=== PATIENT | female | born 1940 | race Caucasian/White ===

== ENCOUNTER 2016-07-09 19:06 | Inpatient (IN) | payer OTHER, MEDICARE ==
[~2016-07-09] VITALS: Ht 157.5 cm; Wt 111.6 kg
[~2016-07-09 19:06] MED LIST: ADVAIR DISKUS 21 DSK INH; ALBUTEROL0.09 MG/A1 INH; APAP/CODEINE 301 TAB PO; COUMADIN 2 MG TA2 MG PO; COUMADIN 4MG TAB4 MG PO; CRESTOR40 M2; CRESTOR40 MG PO; DOCUSATE SODIU100 MG PO; DRISDOL50000 IU PO; FUROSEMIDE40 M1; FUROSEMIDE80 MG PO; K-DUR 20MEQ TA20 MEQ PO; LIDODERM 5% PAT1 PAT EXT; MIRALAX17 GM PO; MONTELUKAST SOD10 MG PO; NEXIUM40 M1; NORFLEX100 MG PO; PREDNISONE 10MG10 M1 PO; PREDNISONE10 M2 PO; PROAIR HFA0.09 MG/Ac INH; PROAIR HFA8.5 GM INH; SENOKOT8.6 MG PO; SINGULAIR10 M1; SPIRIVA1 PUF INH; TOVIAZ 4MG4 MG PO; TRAMADOL HYDROC50 MG PO; TRAZODONE50 MG PO; VENTOLIN1 PUF INH; VICODIN 300 MG-1 TAB PO; VITAMIN B121000 MCG PO; VITAMIN C1000 M1 PO; ZITHROMAX250 M2 PO; ZOLPIDEM TARTRA10 MG PO
[2016-07-09] MEDS ORDERED: ACETAZOLAMIDE250 M1 PO (19:53)
[2016-07-09] MEDS ORDERED: PANTOPRAZOLE SO40 M1 PO (19:54)
[2016-07-09] MEDS ORDERED: POTASSIUM CHLO20 ME2 PO (19:55)
[2016-07-09] MEDS ORDERED: BUSPIRONE HCL5 M1 PO (19:55)
[2016-07-09] MEDS ORDERED: GABAPENTIN100 M2 PO (19:56)
[2016-07-09] MEDS ORDERED: DOCUSATE SODIU1 EACH PO (19:57)
--- NOTE | 2016-07-09 20:29 | ED AMS/SEIZURE/WEAK/DIZZY ---
History of Present Illness General Chief Complaint: General Adult Stated Complaint: BIBA FOR LETHARGY Source: patient, family, old records, EMS Exam Limitations: clinical condition, confusion Allergies Coded Allergies: morphine (CO2 GOES UP PER PT DAUGHTER 07/09/16) Reconcile Medications Acetazolamide 250 MG TABLET 1 TAB PO Friday KIDNEY (Reported) Albuterol Sulfate (Proair Hfa) 90 MCG HFA.AER.AD 2 PUF INH Q4-6 PRN PRN wheezing Budesonide/Formoterol Fumarate (Symbicort 160-4.5 Mcg Inhaler) 160 MCG-4.5 MCG/ ACTUATION HFA.AER.AD 2 PUF INH BID copd (Reported) Buspirone HCl 5 MG TABLET 1 TAB PO BID mental health (Reported) Esomeprazole (Nexium) 40 MG CAP 1 CAP PO DAILY GI (Reported) Furosemide 40 MG TAB 1 TAB PO DAILY DIURETIC (Reported) Gabapentin 100 MG CAPSULE 1 CAP PO BID neuropathy (Reported) Montelukast Sodium (Singulair) 10 MG TAB 1 TAB PO DAILY COPD (Reported) Pantoprazole Sodium 40 MG TABLET.DR 1 TAB PO DAILY GI (Reported) Potassium Chloride 20 MEQ TAB.ER.PRT 1 TAB PO DAILY SUPPLEMENT (Reported) Rosuvastatin Calcium (Crestor) 40 MG TAB 40 MG PO DAILY CHOLESTEROL (Reported ) Sennosides/Docusate Sodium (Docusate Sodium-Senna Tablet) 8.6 MG-50 MG TABLET 2 TAB PO QHS PRN GI (Reported) Triage Note: PT BIBA FROM HOME C/O FAMILY COULD NOT WAKE PT UP. ON ARRIVAL PT IS AWAKE AND A&0X2. PER MEDIC WHO ARRIVED ON SCENE "PT WAS IN A DEEP SLEEP AND A STERNAL RUB AWOKE THE PT, PT AT HOME 2LNC 02 PT WE PUT HER ON 3L NC SAT 93%, PTS FAMILY GAVE HER LASIX BEFORE THEY CALLED 911, PT HAS HAD A COUGH FOR THE PAST WEEK ON PREDNISONE AND ALBUTEROL." PER PTS DAUGHTER " I GAVE THE ONLY MED LIST WE HAVE TO THE AMBULCANCE". PT IN VSS, 3.5LNC SAT 95%. FAMILY AT BEDSIDE, AWAITING PROVIDER EVAL Triage Nurses Notes Reviewed? yes HPI: 76-year-old female with history of COPD, on home O2 3 L, history of hypercarbic respiratory failure about a year and a half ago which required admission, presents by ambulance with altered mental status. Daughter is with her upon arrival in the history is obtained from her as the patient is very confused and unable to provide much medical history, she is alert but not oriented to person place or time. Daughter states that she got home this afternoon and patient was unarousable, when they were trying to arouse her she seems very confused, not making any sense, she was incoherent. They have noted over the last few days a mild decrease in activity level. There has been no fever. She is with an aid at home, there is been no fall or trauma. No modifying factors. Symptoms are moderate to severe. Patient states she is not in any pain (LORENZO LEIJA) Vital Signs & Intake/Output Vital Signs & Intake/Output Vital Signs Date Time Temp Pulse Resp B/P Pulse O2 O2 Flow FiO2 Ox Delivery Rate 07/13 0928 93 Nasal 1.0L Cannula 07/13 0623 98.4 60 20 114/70 96 Nasal Cannula 07/13 0000 Nasal 1.5L Cannula 07/12 2356 95 Nasal 2.0L Cannula 07/12 2256 98.0 69 20 102/60 97 Nasal Cannula 07/12 1927 Nasal 3.0L Cannula 07/12 1600 Nasal 1.0L Cannula ED Intake and Output 07/13 0000 07/12 1200 Intake Total 850 720 Output Total 2000 300 Balance -1150 420 Intake, IV 250 Intake, Oral 600 720 Output, Urine 2000 300 Past History Travel History Traveled to [place] past 21 day No Medical History Any Pertinent Medical History? see below for history Neurological: NONE EENT: cataracts Cardiovascular: hyperlipidemia Respiratory: asthma, COPD, hYPERCARBIC RESPIRATORY FAILURE Gastrointestinal: NONE Hepatic: NONE Renal: urinary incontinence, KIDNEY STONES Musculoskeletal: arthritis Psychiatric: NONE Endocrine: obesity Blood Disorders: DVT Cancer(s): endometrial cancer YACHT RIGGER/Reproductive: HYSTERECTOMY History of MRSA: No History of VRE: No History of CDIFF: No Surgical History Surgical History: non-contributory Psychosocial History Who do you live with Patient/Self Services at Home Home Health Aide, Nursing What is your primary language Ma[place] Tobacco Use: Quit >30 days ago ETOH Use: denies use Illicit Drug Use: denies illicit drug use Family History Hx Contributory? No (LORENZO LEIJA) Review of Systems Review of Systems Constitutional: Reports: see HPI. Comments Unable to determine due to patient's altered mental status (LORENZO LEIJA) Physical Exam Physical Exam General Appearance: well developed/nourished Comments: Elderly female looks stated age sitting on stretcher, confused and lethargic, nodding off during exam Able to follow some commands, minimal attention span HEENT: Normal EENT exam, extraocular motion intact, Pupils equally round and reactive to light. Nose is atraumatic. Dry mucous membranes Pharynx normal. No swelling or edema. Neck: Supple, no lymphadenopathy, Back: Nontender, no signs of trauma Cardiovascular: Regular rate and rhythms no murmurs, normal JVP Respiratory: Chest nontender. Mild increased respiratory rate and effort, decreased breath sounds noted throughout Abdomen: Soft, nontender nondistended, no appreciable organomegaly. Normal bowel sounds. No ascites Extremity: Chronic bilateral lower extremity edema and multiple bilateral foot and ankle deformities, questional Charcot joint bilateral ankle, no calf tenderness to palpation, normal and equal pulses. Neuro: Alert and confused, unable to follow most commands. Oriented 0 Skin: No appreciable rash on exposed skin, skin is warm and dry. Psych: Unable to assess Core Measures ACS in differential dx? Yes CVA/TIA Diagnosis: No Severe Sepsis Present: No Septic Shock Present: No (LORENZO LEIJA) Progress Differential Diagnosis: arrythmia, alcohol intoxication, anemia, benign positional vertigo, CVA/stroke, dehydration, drug intoxication, encephalitis, electrolyte imbalance, GI bleed, hypoglycemia, hypoxia, intracranial Hem., intracranial mass/tumor, labrynthitis, meningitis, Meniere's disease, migraine DUARTE, multiple sclerosis, pneumonia, postural hypotension, presyncope, post- traumatic vertigo, sepsis, seizure disorder, subarachnoid Hem., UTI/pyelo, vertebrobasilar insuff Diagnostic Imaging: Viewed by Me: Radiology Read. Discussed w/RAD: Radiology Read. CXR Impression: PATIENT: PAL JOHNSON PRESENT AGE: 76 PATIENT ACCOUNT NO: [id number] : 41 LOCATION: [facility] ORDERING PHYSICIAN: LORENZO ALDRIDGE SERVICE DATE: 07/09/16 EXAM TYPE: RAD - XRY-PORTABLE CHEST XRAY EXAMINATION: XR PORTABLE CHEST CLINICAL INFORMATION: Respiratory failure. COMPARISON: Chest x-ray 06/29/2016, 06/13/2015. CT chest 01/03/2014 TECHNIQUE: Portable view of the chest was obtained. FINDINGS: No acute change of the chest. Lungs are clear. No pulmonary vascular congestion. No infiltrate or pleural effusion. Cardiac and mediastinal contours are normal. IMPRESSION: No acute change of the chest. DICTATED BY: CAT LIRIANO MD DATE/TIME DICTATED:07/09 WOOD GLUER:DENISE Initial ED EKG: NSR, rate (70), no ST T wave changes Rhythm Strip: normal sinus rhythm (OLRENZO LEIJA) Plan of Care: Orders Procedure Date/time Status ARTERIAL BLOOD GAS (GEN) 07/13 0500 Complete THERAPIST ORDERS 07/13 0321 Complete THERAPIST ORDERS 07/13 0003 Complete THERAPIST ORDERS 07/13 0001 Complete Nursing Misc 07/12 UNK Active Current Medications Sig/Yamileth Start time Last Medication Dose Stop Time Status Admin Acetazolamide 250 MG MoFr 07/12 1500 AC (Diamox) Furosemide 20 MG Fri THUR 07/12 1455 CAN (Lasix) Laboratory Tests 07/13/16 0800: pH 7.37, pCO2 64 *H, pO2 92, HCO3 36 H, ABG O2 Sat (Measured) 95.0 L, Carboxyhemoglobin 0.7 L, O2 Concentration % 2L, O2 Delivery Method NC, Phlebotomy Draw Site LEFT RADIAL 07/13/16 0800: pH Pending, pCO2 Pending, pO2 Pending, HCO3 Pending, ABG O2 Sat (Measured) Pending, P-50 (Temp Corrected) Pending, Carboxyhemoglobin Pending, O2 Concentration % Pending, Temperature Pending, O2 Delivery Method Pending, Phlebotomy Draw Site Pending Comments: 07/09/2016 9:04:08 PM patient's mentation is improving with BiPAP. (RAFAEL CRUZ,MARLEN Rogers) Departure Departure Disposition: STILL A PATIENT Condition: Stable Clinical Impression Primary Impression: Acute hypercapnic respiratory failure Referrals: ELEANOR CRUZ,LISA Qunitero (PCP/Family) Departure Forms: Customer Survey General Discharge Information Admission Note Spoke With: JASPER CRUZ,GT Documentation of Exam: Documentation of any treatments & extenuating circumstances including Concerns Regarding Discharge (functional status, medication knowledge or non-compliance, living conditions, etc.) that warrant an admission rather than observation: Acute hypercarbic respiratory failure and altered mental status, requires ICU admission, on BiPAP (LORENZO LEIJA) PA/RN ANGIOGRAPHY Co-Sign Statement Statement: ED Attending supervision documentation- [x] I saw and evaluated the patient. I have also reviewed all the pertinent lab results and diagnostic results. I agree with the findings and the plan of care as documented in the PA's/RN ANGIOGRAPHY's documentation. [] I have reviewed the ED Record and agree with the PA's/RN ANGIOGRAPHY's documentation. [] Additions or exceptions (if any) to the PAs/RN ANGIOGRAPHY's note and plan are summarized below: [] (RAFAEL CRUZ,MARLEN Rogers) Critical Care Note Critical Care Note Critical Care Time: 30-74 min (30) Comments: 07/09/2016 8:28:28 PM Cough or respiratory regarding ABG, 7.1, CO2 104, we'll place on BiPAP, Dr. Friedman notified, transfer care over to him because patient is critical, she will require ICU management GIVEN SOLUMEDROL IV AND ROCEPHIN AND ZITHROMAX IV (LORENZO LEIJA) (MARLEN FRIEDMAN MD) Critical Care Note Critical Care Note Critical Care Time: 30-74 min (30) Comments: 07/09/2016 8:28:28 PM Cough or respiratory regarding ABG, 7.1, CO2 104, we'll place on BiPAP, Dr. Friedman notified, transfer care over to him because patient is critical, she will require ICU management GIVEN SOLUMEDROL IV AND ROCEPHIN AND ZITHROMAX IV (LORENZO LEIJA)
[2016-07-09 20:56] LABS: PT 11.6 SEC (9.4-12.5)
[2016-07-09 21:15] LABS: ABSOLUTE BASOPHIL COUNT 0 /CUMM (0.0-0.2); ABSOLUTE EOSINOPHIL COUNT 0 /CUMM (0.0-0.7); ABSOLUTE GRANULOCYTE CT 6.1 /CUMM (1.4-6.5); ABSOLUTE LYMPH COUNT 0.5 /CUMM (1.2-3.4); ABSOLUTE MONOCYTE COUNT 0.3 /CUMM (0.10-0.60); BASOPHIL % 0.2 % (0.0-2.0); EOSINOPHIL % 0.4 % (0-5); HEMATOCRIT 35.1 % (37-47); MEAN CORPUSCULAR HGB 20.5 PG (27.0-31.0); MEAN CORPUSCULAR HGB CONC 29.6 G/DL (33.0-37.0); MEAN CORPUSCULAR VOLUME 69.3 FL (81.0-99.0); MEAN PLATELET VOLUME 7.6 FL (7.4-10.4); PLATELET COUNT 175 /CUMM (130-400); RED BLOOD CELL CT 5.07 /CUMM (4.20-5.40); WHITE BLOOD CELL COUNT 6.9 /CUMM (4.8-10.8)
--- NOTE | 2016-07-09 21:25 | RADIOLOGY REPORT ---
EXAMINATION: XR PORTABLE CHEST CLINICAL INFORMATION: Respiratory failure. COMPARISON: Chest x-ray 06/29/2016, 06/13/2015. CT chest 01/03/2014 TECHNIQUE: Portable view of the chest was obtained. FINDINGS: No acute change of the chest. Lungs are clear. No pulmonary vascular congestion. No infiltrate or pleural effusion. Cardiac and mediastinal contours are normal. IMPRESSION: No acute change of the chest.
--- NOTE | 2016-07-09 21:31 | History & Physical ---
AKIN DONOVAN 07/09/162129: General Information and HPI MD Statement: I have seen and personally examined PAL JOHNSON and documented this H&P. The patient is a 76 year old F who presented with a patient stated chief complaint of [lethargy and altered mental status]. Source of Information: patient, old records Exam Limitations: clinical condition, confusion History of Present Illness: 76-year-old female with a past medical history of COPD on 3.0 liters of O2 at home, ex-smoker, hypertension, hyperlipidemia, arthritis, fracture of the ankle with swollen right lower extremity, baseline bilateral edema, pulmonary hypertension with sleep apnea noncompliant with BiPAP, chronic hypercarbia related to ADITYA and central sleep apnea presented to the ED with increased lethargy and confusion. History is obtained from ED records as the patient is slightly confused and there is no family by bedside/ unable to be reached over phone to take the pertinent history. Apparently daughter found the patient to be slumped in her chair this afternoon, unresponsive and sleeping, not responding to sternal rubs. When she tried to arouse her she seemed very confused and was incoherent. The family also noted a decrease in her activity level for the past few days. There is no history of fever. Patient does have a heat at home and there is no history of fall or trauma. Of note patient was seen in the ER about a week ago for COPD exacerbation and discharged on prednisone, albuterol and Z-Pack. We are unsure if the patient was taking her medications as prescribed. Patient denies any chest pain, orthopnea, PND, fever, chills but does admit to bringing up productive nonpurulent phlegm. She denies nausea, vomiting, abdominal pain, urinary tract symptoms, headache, sore throat. She states that her son had a cold and so there might be a history of sick contact. Allergies/Medications Allergies: Coded Allergies: morphine (CO2 GOES UP PER PT DAUGHTER 07/09/16) Home Med list Acetazolamide 250 MG TABLET 1 TAB PO Friday KIDNEY (Reported) Albuterol Sulfate (Proair Hfa) 90 MCG HFA.AER.AD 2 PUF INH Q4-6 PRN PRN wheezing Budesonide/Formoterol Fumarate (Symbicort 160-4.5 Mcg Inhaler) 160 MCG-4.5 MCG/ ACTUATION HFA.AER.AD 2 PUF INH BID copd (Reported) Buspirone HCl 5 MG TABLET 1 TAB PO BID mental health (Reported) Esomeprazole (Nexium) 40 MG CAP 1 CAP PO DAILY GI (Reported) Furosemide 40 MG TAB 1 TAB PO DAILY DIURETIC (Reported) Gabapentin 100 MG CAPSULE 1 CAP PO BID neuropathy (Reported) Montelukast Sodium (Singulair) 10 MG TAB 1 TAB PO DAILY COPD (Reported) Pantoprazole Sodium 40 MG TABLET.DR 1 TAB PO DAILY GI (Reported) Potassium Chloride 20 MEQ TAB.ER.PRT 1 TAB PO DAILY SUPPLEMENT (Reported) Rosuvastatin Calcium (Crestor) 40 MG TAB 40 MG PO DAILY CHOLESTEROL (Reported ) Sennosides/Docusate Sodium (Docusate Sodium-Senna Tablet) 8.6 MG-50 MG TABLET 2 TAB PO QHS PRN GI (Reported) Past History Travel History Traveled to [place] past 21 day No Medical History Neurological: NONE EENT: cataracts Cardiovascular: hyperlipidemia Respiratory: asthma, COPD, hYPERCARBIC RESPIRATORY FAILURE Gastrointestinal: NONE Hepatic: NONE Renal: urinary incontinence, KIDNEY STONES Musculoskeletal: arthritis Psychiatric: NONE Endocrine: obesity Blood Disorders: DVT Cancer(s): endometrial cancer [employer]/Reproductive: HYSTERECTOMY History of MRSA: No History of VRE: No History of CDIFF: No Surgical History Surgical History: non-contributory Past Family/Social History Psychosocial History Services at Home: Home Health Aide, Nursing ETOH Use: denies use Illicit Drug Use: denies illicit drug use Review of Systems Review of Systems Constitutional: Denies: chills, diaphoresis, fever, weakness. EENTM: Denies: visual changes. Cardiovascular: Denies: chest pain, orthopena, palpitations. Respiratory: Reports: cough, sputum production. Denies: hemoptysis, orthopnea, short of breath, wheezing. GI: Denies: abdominal pain, bloating, constipation, diarrhea, nausea, vomiting. Genitourinary: Reports: no symptoms. Musculoskeletal: Reports: no symptoms. Neurological/Psychological: Denies: headache, numbness, tingling, tremors, unable to move lower ext, unable to move upper ext. Exam & Diagnostic Data Last 24 Hrs of Vital Signs/I&O Vital Signs Date Time Temp Pulse Resp B/P Pulse O2 O2 Flow FiO2 Ox Delivery Rate 07/09 2037 76 93 07/09 1939 95 Nasal 3.5L Cannula 07/09 1933 98.6 81 18 113/56 97 Room Air Physical Exam General Appearance Alert, oriented x2, in mild respiratory distress on BiPAP HEENT Atraumatic, PERRLA, EOMI, dry mucous membranes Neck Supple, No JVD, +2 Carotid Pulse wo Bruit, No LAD Cardiovascular Regular Rate, Normal S1, Normal S2, No Murmurs Lungs B/l decreased breath sounds Abdomen Normal Bowel Sounds, Soft, No Tenderness Neurological Normal Speech Extremities RLE more swollen compared to LLE. B/l edema in LEs. Vascular Normal Pulses, Pulses Symmetrical Last 24 Hrs of Labs/Luigi: Laboratory Tests 07/09/16 2100: Urinalysis LIGHT H, Urine Color YEL, Urine Clarity HAZY H, Urine pH 6.0, Ur Specific [place] 1.025, Urine Protein 100 H, Urine Ketones NEG, Urine Nitrite NEG, Urine Bilirubin NEG, Urine Urobilinogen 0.2, Ur Leukocyte Esterase NEG, Ur Microscopic SEDIMENT EXAMINED, Urine RBC 1-3, Urine WBC 1-3 H, Ur Epithelial Cells FEW, Hyaline Casts 1-3 H, Urine Mucus FEW, Urine Hemoglobin SMALL H, Urine Glucose NEG 07/09/162038: Anion Gap 11, Estimated GFR 44 L, BUN/Creatinine Ratio 15.0, Glucose 121 H, Lactic Acid 1.0, Calcium 8.1 L, Total Bilirubin 0.8, AST 17, ALT 29, Alkaline Phosphatase 129 H, Troponin I < 0.01, Total Protein 6.6, Albumin 3.4 L, Globulin 3.2, Albumin/Globulin Ratio 1.1, PT 11.6, INR 1.11, CBC w Diff NO MAN DIFF REQ, RBC 5.07, MCV 69.3 L, MCH 20.5 L, RDW 18.0 H, MPV 7.6, Gran % 87.9 H, Lymphocytes % 7.7 L, Monocytes % 3.8, Eosinophils % 0.4, Basophils % 0.2, Absolute Granulocytes 6.1, Absolute Lymphocytes 0.5 L, Absolute Monocytes 0.3, Absolute Eosinophils 0, Absolute Basophils 0, PUBS MCHC 29.6 L 07/09/162004: pH 7.12 *L, pCO2 104 *H, pO2 75 L, HCO3 37 H, ABG O2 Sat (Measured) 91.0 L, P -50 (Temp Corrected) N, Carboxyhemoglobin 1.2 L, O2 Concentration % 2.5L, Temperature 98.6, O2 Delivery Method NC, Phlebotomy Draw Site RIGHT RADIAL Microbiology 07/09 2039 BLOOD: Blood Culture - RECD 07/09 2038 BLOOD: Blood Culture - RECD Diagnostic Data EKG Results Normal sinus rhythm with a heart rate of 74, KS interval 168, no ST-T changes and a QTC of 435 CXR Results No acute changes, no evidence of pulmonary venous congestion, infiltrate or pleural effusion Assessment/Plan Assessment: 76-year-old female with a past medical history of COPD on 3.0 liters of O2 at home, ex-smoker, hypertension, hyperlipidemia, arthritis, fracture of the ankle with swollen right lower extremity, baseline bilateral edema, pulmonary hypertension with sleep apnea noncompliant with BiPAP, chronic hypercarbia related to ADITYA and central sleep apnea presented to the ED with increased lethargy and confusion. Vitals at the time of admission blood pressure 113/56, respiratory rate 18, pulse 81, afebrile saturating 97% on 3-1/2 L of oxygen. On physical exam she is alert and oriented 2 with the BiPAP on and in mild respiratory distress. HEENT revealed PERRLA, dry mucous membranes. Cardio last exam was benign with normal S1, S2, no murmurs appreciated. Examination of the neck did not reveal any JVD or; adenopathy. Respiratory exam revealed decreased breath sounds bilaterally. Abdominal exam was benign with abdomen soft, nontender, nondistended with normal bowel sounds in all 4 quadrants. Neuro exam was limited. Examination of the extremities revealed right lower extremity slightly more swollen and warm compared to the left lower extremity. Labs pertinent for a normal white blood cell count of 6900, macrocytic anemia with an H&H of 10.4/35.1 and a platelet count of 175,000. Serum chemistries revealed a sodium of 136, potassium of 3.7, bicarbonate 37, BUN 18, elevated creatinine of 1.2, anion gap of 11. Her serum glucose was elevated to 121. Serum lactate was within normal limits at 1.0. LFTs were unremarkable with an AST/ALT of 17/29, total bili of 0.8. She did have an elevated alkaline phosphatase of 129. Her troponin first set was negative at 0.01. ABGs reveal severe respiratory acidosis with a pH of 7.12, PCO2 104 and a piece O2 of 75. UA was hazy, 1-3 white blood cell count, proteinuria and negative for nitrite and 1-3 hyaline casts and small amount of hemoglobin. Chest x-ray did not reveal any acute changes, was negative for any evidence of pulmonary venous congestion nor infiltrate or pleural effusion. Last echocardiogram was done in December 2013 which revealed left ventricular ejection fraction of 60-65% with pulmonary hypertension with an RS greater than 55. In the ED she received normal saline bolus 1, Solu-Medrol 125 mg 1, ceftriaxone and azithromycin. Assessment and plan Given her history, clinical presentation and laboratory she most likely has acute hyper carbic hypoxemic respiratory failure secondary to COPD exacerbation most likely secondary to not being compliant with BiPAP at home. Admit patient to ICU Respiratory #Acute hypoxemic, hypercarbic respiratory failure - Most likely secondary to noncompliance with BiPAP at night and COPD exacerbation - Follow-up repeat ABG and adjust BiPAP settings accordingly Start her on Solu-Medrol 40 mg IV every 8 Send for lower respiratory culture, urinary antigen for strep pneumo and Legionella Indiahoma start her on normal saline at 75 mL per hour for 1 back Continue on Symbicort and Singulair starting tomorrow Continue on Azithromyciin for its antiinflammatory properties TRC nebs BiPAP at night and nothing by mouth for now Follow-up ABG in a.m. Continue to maintain oxygen saturations greater than 90% There does not seem to be any evidence of pneumonia given the white blood cell count, fever and/or radiological evidence. For now will aguero off antibiotics. Critical care consult in a.m. with Dr. Sanders. - ID - No active signs of infection - Cardiovascular # Chronic B/L lower etxremity edema - Patient is on Lasix 40mg daily - Hold it for now given MARY KATE adn dehydration on PE. # R/o ACS - F/U trop and EKG @ 2:00am and 8:00am - Metabolic # MARY KATE - Most likely 2/2 dehydration - Hydration with IVF @ 75mls/hr - Hold Lasix and Acetazolamide - Avoid nephrotoxic agents - F/U BEP in AM #Hyponatremia Most likely secondary to dehydration Follow-up BEP in a.m. -Hematology - Microcytic anemia - 2/2 iron deficiency - F/U iron studies, stool guiac - Alimentary - Elevated blood glucose Most likely secondary to stress Follow-up hemoglobin A1c #Hyperlipidemia Continue on atorvastatin 80 mg daily - Neurology # Altered mental status Most likely secondary to hypercarbia versus hyponatremia Maintain on BiPAP for now Maintained on aspiration precautions Continue to hold medications for early malignant BiPAP For now will hold Buspirone 5 mg twice a day - Neuropathy Continue on gabapentin 100 mg twice a day - DVT prophylaxis On heparin 5000 international units 3 times a day -Diet Nothing by mouth for now given her being on BiPAP - CODE STATUS Full code as per patient. Family was unable to be reached reconfirming the CODE STATUS As Ranked By This Provider Problem List: 1. Acute hypercapnic respiratory failure 2. COPD exacerbation Core Measures/Miscellaneous Acute Coronary Syndrome ACS Diagnosis: No Cerebrovascular Accident CVA/TIA Diagnosis: No Congestive Heart Failure CHF Diagnosis: No Venous Thromboembolism VTE Risk Factors: Age > 40 VTE Prophylaxis Ordered Inpt: Pharm- Heparin No Mech VTE prophylaxis d/t: No contraindications No VTE Pharm Prophylaxis d/t: No contraindications VTE Diagnosis: No VTE Type: NONE VTE Confirmed by (Test): NONE Severe Sepsis Severe Sepsis Present: No Septic Shock Septic Shock Present: No Miscellaneous Documentation Attending Case Discussed With: Dr. Mei Primary Care Physician: LISA WEBSTER MD Patient sees these Specialists - Dr. Sanders Level of Patient Care: Critical Care (CRI) Consults Needed: Consulting Specialty: Critical Care Resident Review Statement Resident Statement: admitted by resident JASPER CRUZ, [facility] 07/09/16 0028: Attending MD Review Statement Attending Statement Attending MD Statement: examined this patient, discuss w/resident/PA/CIVIL PREPAREDNESS TRAINING OFFICER, agreed w/resident/PA/CIVIL PREPAREDNESS TRAINING OFFICER Attending Assessment/Plan: 76 yo morbidly obese F wit h/o chronic hypercarbic respiratory failure, COPD on 2-3 L O2 with significant restrictive pulmonary disease, HTN, CKD stage 3A, sleep apnea noncompliant with CPAP due to claustrophobia, DVT not on coumadin (? ), pulmonary hypertension, is brought in by family for lethargy and altered mental status. Patient on my evaluation was more awake but still confused. She reports a productive cough, but denies any other symptoms. Of note, she was admitted to [place] (May 2015) for COPD exacerbation. She was also seen in ER on Jun 29 2016 for cough/sore throat treated with prednisone and azithro for bronchitis/COPD. Vitals: afebrile, HR 80's, BP 147/95, sats 98% on Bipap FiO2 30%. Exam: Awake, oriented x2, appears comfortable, no JVD, dry mucous membranes, Chest b/l reduced air entry with scattered wheezes, Heart S1S2 regular, Abd soft, nontender, LE: chronic Rt foot swelling s/p ankle fracture with multiple corrections. 1+ LLE. Labs: microcytic anemia, INR 1.11, bicarb 37, Na 136, BUN 18, creat 1.2 ( baseline 1.0-1.1), lactic acid normal, trop neg, EKG: SR. AB.12/104/75/37 ( acute on chronic respiratory acidosis). UA clear. CXR neg. Echo (2013): EF 60-65 %, pulmonary hypertension. 1. Acute on chronic hypercarbic and hypoxemic respiratory failure. This could be due to noncompliance with CPAP for sleep apnea, ?underlying OHS and possible COPD exacerbation. No pneumonia or CHF. She also has significant pulmonary hypertension. Of note, she has been off coumadin (for h/o DVT) per daughter and her INR is 1.11. Although her pharmacy med rec shows coumadin prescribed on Jul 08, daughter states patient definitely is not on coumadin. Hence, possibility of a PE cannot be ruled out. ICU admit, TRC nebs, continue Bipap, repeat ABG tonight to ensure hypercarbia is resolving and then repeat in AM. Panculture, check urine tox screen, keep NPO except for meds, continue IV steroids tonight and then rapid taper from AM, continue azithro. Obtain LE dopplers in AM. Would consider CTA (if creatinine stabilizes) or VQ scan to rule out PE. Check Echo to assess RV function and pulmonary hypertension. Serial EKG and troponin to rule out ACS. Critical care consult with Dr. Sanders in AM. Continue singulair and symbicort. 2. Mild elevation in creatinine in this patient with CKD stage 3A, not MARY KATE. Gentle hydration, check renal functions in AM. Hold lasix and acetazolamide for now. 3. Microcytic anemia. Check iron studies, guaiac all stools. 4. GI ppx. IV PPI. DVT ppx Hep SC. Full code. Please confirm CMR in AM with PCP office (unclear if patient supposed to be on coumadin). TTS > 45 mins
[2016-07-09 21:32] LABS: GRANULOCYTE % 87.9 % (42.2-75.2)
[2016-07-09] MEDS ORDERED: SYMBICORT 16010.2 GM INH (22:25)
[2016-07-10] VITALS: BP 100/60
--- NOTE | 2016-07-10 00:28 | Admission Certification ---
Admission Certification Certification Statement - As attending physician, I certify that at the time of - admission, based on clinical presentation, severity of - symptoms, need for further diagnostic testing and - therapeutic interventions, and risk of adverse outcomes - without in-hospital treatment, in my clinical assessment, - this patient requires an acute hospital stay for a minimum - of two nights or longer. I have also considered psychsocial - factors such as support system, advanced age, financial - issues, cognitive issues, and failed out-patient treatments, - past re-admission history, safety of patient, and lack of - compliance as applicable. Specific rationale supporting this admission is: Acute on chronic hypercarbic and hypoxemic respiratory failure 2/2 sleep apnea ? OHS, and possible COPD exacerbation.
[2016-07-10 05:57] LABS: PT 11.8 SEC (9.4-12.5)
[2016-07-10 06:03] LABS: ABSOLUTE BASOPHIL COUNT 0 /CUMM (0.0-0.2); ABSOLUTE EOSINOPHIL COUNT 0 /CUMM (0.0-0.7); ABSOLUTE GRANULOCYTE CT 8.1 /CUMM (1.4-6.5); ABSOLUTE LYMPH COUNT 0.6 /CUMM (1.2-3.4); ABSOLUTE MONOCYTE COUNT 0 /CUMM (0.10-0.60); BASOPHIL % 0 % (0.0-2.0); EOSINOPHIL % 0 % (0-5); GRANULOCYTE % 92.5 % (42.2-75.2); HEMATOCRIT 31.9 % (37-47); MEAN CORPUSCULAR HGB 20.3 PG (27.0-31.0); MEAN CORPUSCULAR HGB CONC 29.3 G/DL (33.0-37.0); MEAN CORPUSCULAR VOLUME 69.4 FL (81.0-99.0); MEAN PLATELET VOLUME 7.6 FL (7.4-10.4); PLATELET COUNT 164 /CUMM (130-400); RBC DISTRIBUTION WIDTH 18.2 % (11.5-14.5); WHITE BLOOD CELL COUNT 8.8 /CUMM (4.8-10.8)
[2016-07-10 08:00] VITALS: BP 102/60
--- NOTE | 2016-07-10 10:56 | ULTRASOUND REPORT ---
EXAMINATION: BILATERAL LOWER EXTREMITY DEEP VENOUS ULTRASOUND CLINICAL INFORMATION: Hypoxemic respiratory failure. Hypercarbic. COMPARISON: Right lower extremity DVT study 06/13/2015 TECHNIQUE: Duplex Doppler imaging with compression maneuvers were performed of the bilateral lower extremity deep venous systems. FINDINGS: The bilateral visualized common femoral, femoral and popliteal veins demonstrate normal compressibility and color flow without evidence of venous thrombosis. Visualized portions of the bilateral calf veins demonstrate normal color fill-in suggesting patency. Small left Joseph's cyst measuring approximately 2.8 x 0.7 x 1.8 cm. IMPRESSION: 1. No evidence of deep venous thrombosis involving the bilateral lower extremities. 2. Small left-sided Joseph's cyst.
--- NOTE | 2016-07-10 11:10 | Cons- Cardiology ---
General Information and HPI Consulting Request Date of Consult: 07/10/16 Requested By: Dr. Sanders Reason for Consult: Dyspnea Source of Information: patient, family, old records History of Present Illness: This is a 76-year-old female with a past medical history of sleep apnea noncompliant with home CPAP, COPD, obesity, chronic lower extremity edema, arthritis, and pulmonary hypertension who presented to [facility] with a chief complaint of increased lethargy. The patient's daughter found the patient to be slumped over in her chair and minimally arousable. She apparently had a recent admission for similar complaints at [facility] in March. She apparently did have a nonproductive the cough without subjective fevers. No recent complaints of chest pain, palpitations, diarrhea, headache, slurring of speech, focal weakness, or increasing edema. She does have chronic lower extremity edema. On presentation the patient was found to have significant respiratory acidosis on ABG. On my interview with her today she was comfortable on BiPAP therapy. Allergies/Medications Allergies: Coded Allergies: morphine (CO2 GOES UP PER PT DAUGHTER 07/09/16) Home Med List: Acetazolamide 250 MG TABLET 1 TAB PO Friday KIDNEY (Reported) Albuterol Sulfate (Proair Hfa) 90 MCG HFA.AER.AD 2 PUF INH Q4-6 PRN PRN wheezing Budesonide/Formoterol Fumarate (Symbicort 160-4.5 Mcg Inhaler) 160 MCG-4.5 MCG/ ACTUATION HFA.AER.AD 2 PUF INH BID copd (Reported) Buspirone HCl 5 MG TABLET 1 TAB PO BID mental health (Reported) Esomeprazole (Nexium) 40 MG CAP 1 CAP PO DAILY GI (Reported) Furosemide 40 MG TAB 1 TAB PO DAILY DIURETIC (Reported) Gabapentin 100 MG CAPSULE 1 CAP PO BID neuropathy (Reported) Montelukast Sodium (Singulair) 10 MG TAB 1 TAB PO DAILY COPD (Reported) Pantoprazole Sodium 40 MG TABLET.DR 1 TAB PO DAILY GI (Reported) Potassium Chloride 20 MEQ TAB.ER.PRT 1 TAB PO DAILY SUPPLEMENT (Reported) Rosuvastatin Calcium (Crestor) 40 MG TAB 40 MG PO DAILY CHOLESTEROL (Reported ) Sennosides/Docusate Sodium (Docusate Sodium-Senna Tablet) 8.6 MG-50 MG TABLET 2 TAB PO QHS PRN GI (Reported) Current Medications: Current Medications Sig/Yamileth Start time Last Medication Dose Route Stop Time Status Admin Acetaminophen 650 MG Q6PRN PRN 07/09 2245 AC PO Atorvastatin Calcium 80 MG 1700 07/10 1700 AC PO Azithromycin 500 MG DAILY 07/10 1000 AC Dextrose/Water 250 ML IV Azithromycin 500 MG ONCE ONE 07/09 2145 DC 07/09 Dextrose/Water 250 ML IV 07/09 2244 2206 Budesonide/ 2 PUF BID 07/10 1000 AC Formoterol Fumarate INH Ceftriaxone Sodium 0 .STK-MED ONE 07/09 215 DC .ROUTE Ceftriaxone Sodium 1,000 MG ONCE ONE 07/09 2144 DC 07/09 IV 07/09 2145 220 Gabapentin 100 MG BID 07/10 1000 AC PO Heparin Sodium 5,000 UNIT Q8 07/10 0600 AC 07/10 (Porcine) SC 0541 Heparin Sodium 0 .STK-MED ONE 07/09 2210 DC (Porcine) .ROUTE Heparin Sodium 5,000 UNIT Q8 07/09 2200 DC 07/09 (Porcine) SC 2214 Methylprednisolone 40 MG Q8 07/10 0600 AC 07/10 IV 0541 Methylprednisolone 0 .STK-MED ONE 07/09 2045 DC .ROUTE Methylprednisolone 125 MG ONCE ONE 07/09 2044 DC 07/09 IV 07/09 Montelukast Sodium 10 MG 1700 07/10 1700 AC PO Pantoprazole Sodium 40 MG DAILY 07/10 1000 AC IV Senna/Docusate Sodium 2 TAB AT BEDTIME 07/10 2200 AC PO Sodium Chloride 1,000 ML Q13H 07/09 2230 AC 07/09 IV 07/10 1129 2241 Sodium Chloride 1,000 ML BOLUS ONE 07/09 1999 DC 07/09 IV 07/09 Warfarin Sodium 5 MG ONCE ONE 07/10 0045 CAN PO 07/10 004 Review of Systems Review of Systems: Review of systems as per HPI. The remainder of a 10 point review of systems was reviewed and was otherwise negative. 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 Home Services at Home: Home Health Aide, Nursing Smoking Status: Former Smoker ETOH Use: denies use Illicit Drug Use: denies illicit drug use Exam & Diagnostic Data Vital Signs and I&O Vital Signs Date Time Temp Pulse Resp B/P Pulse O2 O2 Flow FiO2 Ox Delivery Rate 07/10 0904 78 94 07/10 08 92 Nasal 3.0L Cannula 07/10 799 98.0 76 14 102/60 92 Nasal 3.0L Cannula 07/10 0459 92 Nasal 5.0L Cannula 07/10 0450 88 95 07/10 0400 96 BIPAP 40% 07/10 0322 67 94 07/10 0033 65 91 07/10 0030 66 84 07/10 0000 98 BIPAP 30% 07/10 0000 98.7 72 33 100/60 98 BIPAP 30% 07/09 2357 77 93 07/09 2257 98.4 75 18 147/95 86 BIPAP 30% 07/09 2210 92 07/09 2038 76 93 07/09 1940 95 Nasal 3.5L Cannula 07/09 1934 98.6 81 18 113/56 97 Room Air Intake & Output 07/10 1600 07/10 0800 07/10 0000 07/09 1600 07/09 0800 07/09 0000 Intake Total 372 Output Total 400 160 Balance -28 -160 Intake, IV 372 Intake, Oral 0 Number 0 Bowel Movements Output, Urine 400 160 Patient 246 lb Weight Physical Exam: General: no apparent distress. Obese. On BiPAP. Eyes: No obvious scleral icterus. HEENT: No jugular venous distention or abnormal jugular venous pulsations. Cardiovascular: Normal intensity S1/S2. Regular. Respiratory: Lungs clear to auscultation bilaterally. Abdomen: no guarding or rebound tenderness. Musculoskeletal: Trace lower extremity edema bilaterally Skin: Warm Neurologic: No gross focal deficits noted. Labs/Luigi Results: Laboratory Tests 07/10 07/10 07/10 07/10 0840 0825 0800 0500 Blood Gas pH (7.35 - 7.45 PH) 7.25 *L pCO2 (35 - 45 TORR) 82 *H pO2 (80 - 100 TORR) 71 L HCO3 (21 - 28 MEQ/L) 35 H ABG O2 Sat (Measured) (>96.0 %) 92.0 L Carboxyhemoglobin (1.5 - 5.0 %) 2.0 O2 Concentration % 2LPM Temperature (97.0 - 100.0 FARH) 98.0 O2 Delivery Method NC Chemistry Sodium Cancelled Potassium Cancelled Chloride Cancelled Carbon Dioxide Cancelled Anion Gap Cancelled BUN Cancelled Creatinine Cancelled Glucose Cancelled Calcium Cancelled Phosphorus Cancelled Magnesium Cancelled Total Bilirubin Cancelled AST Cancelled ALT Cancelled Troponin I (< 0.11 ng/ml) < 0.01 Cancelled Albumin Cancelled Coagulation D-Dimer (70 - 232 ng/ml) 1003 H Hematology CBC w Diff Cancelled WBC Cancelled RBC Cancelled Hgb Cancelled Hct Cancelled MCV Cancelled MCH Cancelled RDW Cancelled Plt Count Cancelled MPV Cancelled PUBS MCHC Cancelled Miscellaneous Phlebotomy Draw Site LEFT RADIAL 07/10 07/10 0424 0200 Chemistry Sodium (137 - 145 mmol/L) 137 Potassium (3.5 - 5.1 mmol/L) 4.4 Chloride (98 - 107 mmol/L) 93 L Carbon Dioxide (22 - 30 mmol/L) 33 H Anion Gap (5 - 16) 12 BUN (7 - 17 mg/dL) 18 H Creatinine (0.5 - 1.0 mg/dL) 1.1 H Estimated GFR (>60 ml/min) 48 L Glucose (65 - 99 mg/dL) 146 H Calcium (8.4 - 10.2 mg/dL) 7.6 L Phosphorus (2.5 - 4.5 mg/dL) 3.9 Magnesium (1.6 - 2.3 mg/dL) 1.8 Total Bilirubin (0.2 - 1.3 mg/dL) 0.5 AST (14 - 36 U/L) 17 ALT (9 - 52 U/L) 28 Troponin I (< 0.11 ng/ml) < 0.01 Cancelled Albumin (3.5 - 5.0 g/dL) 3.0 L Coagulation PT (9.4 - 12.5 SEC) 11.8 INR (0.90 - 1.19) 1.13 Hematology CBC w Diff MAN DIFF ORDERED WBC (4.8 - 10.8 /CUMM) 8.8 RBC (4.20 - 5.40 /CUMM) 4.60 Hgb (12.0 - 16.0 G/DL) 9.3 L Hct (37 - 47 %) 31.9 L MCV (81.0 - 99.0 FL) 69.4 L MCH (27.0 - 31.0 PG) 20.3 L RDW (11.5 - 14.5 %) 18.2 H Plt Count (130 - 400 /CUMM) 164 MPV (7.4 - 10.4 FL) 7.6 Gran % (42.2 - 75.2 %) 92.5 H Lymphocytes % (20.5 - 51.1 %) 7.1 L Monocytes % (1.7 - 9.3 %) 0.4 L Eosinophils % (0 - 5 %) 0 Basophils % (0.0 - 2.0 %) 0 L Absolute Granulocytes (1.4 - 6.5 /CUMM) 8.1 H Segmented Neutrophils (42.2 - 75.2 %) 85 H Band Neutrophils (0.0 - 5.0 %) 1 Absolute Lymphocytes (1.2 - 3.4 /CUMM) 0.6 L Lymphocytes (20.5 - 51.1 %) 12 L Monocytes (1.7 - 9.3 %) 2 Absolute Monocytes (0.10 - 0.60 /CUMM) 0 L Absolute Eosinophils (0.0 - 0.7 /CUMM) 0 Absolute Basophils (0.0 - 0.2 /CUMM) 0 Nucleated RBCs (0.0 - 0.0 /100WBC) 4 H Platelet Estimate (ADEQUATE) ADEQUATE Polychromasia 1+ Hypochromic-Microcytic 2+ Poikilocytosis 2+ Basophilic Stippling 1+ Anisocytosis 2+ Microcytic Cells 2+ Ovalocytes 1+ Stomatocytes 1+ Elliptocytes FEW PUBS MCHC (33.0 - 37.0 G/DL) 29.3 L Other Body Source Fld Total RBCs Counted (%) 100 07/09 07/09 3708 3231 Blood Gas pH (7.35 - 7.45 PH) 7.26 *L pCO2 (35 - 45 TORR) 74 *H pO2 (80 - 100 TORR) 72 L HCO3 (21 - 28 MEQ/L) 32 H ABG O2 Sat (Measured) (>96.0 %) 92.0 L P-50 (Temp Corrected) N Carboxyhemoglobin (1.5 - 5.0 %) 1.3 L O2 Concentration % 30% Temperature (97.0 - 100.0 FARH) 98.6 Respiration Rate (BPM) 28 O2 Delivery Method BIPAP Vent Mode ST Expiratory Pressure (CM H2O P) 6 Inspiratory Pressure (CM H2O P) 18 Chemistry Lactic Acid Cancelled Miscellaneous Phlebotomy Draw Site RIGHT RADIAL 07/09 Chemistry Sodium (137 - 145 mmol/L) 136 L Potassium (3.5 - 5.1 mmol/L) 3.7 Chloride (98 - 107 mmol/L) 87 L Carbon Dioxide (22 - 30 mmol/L) 37 H Anion Gap (5 - 16) 11 BUN (7 - 17 mg/dL) 18 H Creatinine (0.5 - 1.0 mg/dL) 1.2 H Estimated GFR (>60 ml/min) 44 L BUN/Creatinine Ratio (7 - 25 %) 15.0 Glucose (65 - 99 mg/dL) 121 H Lactic Acid (0.7 - 2.1 mmol/L) 1.0 Calcium (8.4 - 10.2 mg/dL) 8.1 L Phosphorus (2.5 - 4.5 mg/dL) 4.4 Magnesium (1.6 - 2.3 mg/dL) 1.8 Iron (37 - 170 ug/dL) 24 L TIBC (265 - 497 ug/dL) 482 Ferritin (11.1 - 264 ng/mL) 13.2 Total Bilirubin (0.2 - 1.3 mg/dL) 0.8 AST (14 - 36 U/L) 17 ALT (9 - 52 U/L) 29 Alkaline Phosphatase (<127 U/L) 129 H Troponin I (< 0.11 ng/ml) < 0.01 Total Protein (6.3 - 8.2 g/dL) 6.6 Albumin (3.5 - 5.0 g/dL) 3.4 L Globulin (1.9 - 4.2 gm/dL) 3.2 Albumin/Globulin Ratio (1.1 - 2.2 %) 1.1 Coagulation PT (9.4 - 12.5 SEC) 11.6 INR (0.90 - 1.19) 1.11 Hematology CBC w Diff NO MAN DIFF REQ WBC (4.8 - 10.8 /CUMM) 6.9 RBC (4.20 - 5.40 /CUMM) 5.07 Hgb (12.0 - 16.0 G/DL) 10.4 L Hct (37 - 47 %) 35.1 L MCV (81.0 - 99.0 FL) 69.3 L MCH (27.0 - 31.0 PG) 20.5 L RDW (11.5 - 14.5 %) 18.0 H Plt Count (130 - 400 /CUMM) 175 MPV (7.4 - 10.4 FL) 7.6 Gran % (42.2 - 75.2 %) 87.9 H Lymphocytes % (20.5 - 51.1 %) 7.7 L Monocytes % (1.7 - 9.3 %) 3.8 Eosinophils % (0 - 5 %) 0.4 Basophils % (0.0 - 2.0 %) 0.2 Absolute Granulocytes (1.4 - 6.5 /CUMM) 6.1 Absolute Lymphocytes (1.2 - 3.4 /CUMM) 0.5 L Absolute Monocytes (0.10 - 0.60 /CUMM) 0.3 Absolute Eosinophils (0.0 - 0.7 /CUMM) 0 Absolute Basophils (0.0 - 0.2 /CUMM) 0 PUBS MCHC (33.0 - 37.0 G/DL) 29.6 L Toxicology Urine Opiates Screen (>2000 NG/ML) > 4000.00 H Methadone Screen (>300 NG/ML) < 40 Barbiturate Screen (>200 NG/ML) < 60 Ur Phencyclidine Scrn (>25 NG/ML) < 6.00 Amphetamines Screen (>1000 NG/ML) < 100 U Benzodiazepines Scrn (>200 NG/ML) < 85 Urine Cocaine Screen (>300 NG/ML) < 50 Urine Cannabis Screen (>50 NG/ML) < 5.00 Urines Urinalysis LIGHT H Urine Color (YEL,AMB,STR) YEL Urine Clarity (CLEAR) HAZY H Urine pH (5.0 - 8.0) 6.0 Ur Specific Sayre (1.001 - 1.035) 1.025 Urine Protein (NEG,<30 MG/DL) 100 H Urine Ketones (NEG) NEG Urine Nitrite (NEG) NEG Urine Bilirubin (NEG) NEG Urine Urobilinogen (0.1 - 1.0 EU/dl) 0.2 Ur Leukocyte Esterase (NEG) NEG Ur Microscopic SEDIMENT EXAMINED Urine RBC (0 - 5 /HPF) 1-3 Urine WBC (0 - 2 /HPF) 1-3 H Ur Epithelial Cells (NONE,FEW) FEW Hyaline Casts (0/LPF) 1-3 H Urine Mucus (FEW,NONE) FEW Urine Hemoglobin (NEG) SMALL H Urine Glucose (N MG/DL) NEG 07/09 Blood Gas pH (7.35 - 7.45 PH) 7.12 *L pCO2 (35 - 45 TORR) 104 *H pO2 (80 - 100 TORR) 75 L HCO3 (21 - 28 MEQ/L) 37 H ABG O2 Sat (Measured) (>96.0 %) 91.0 L P-50 (Temp Corrected) N Carboxyhemoglobin (1.5 - 5.0 %) 1.2 L O2 Concentration % 2.5L Temperature (97.0 - 100.0 FARH) 98.6 O2 Delivery Method NC Chemistry Hemoglobin A1c Pending Miscellaneous Phlebotomy Draw Site RIGHT RADIAL Diagnostic Data EKG Results Tracing personally reviewed show sinus rhythm with low voltage and right axis deviation CXR Results No acute change of the chest. Other Results Telemetry tracings were personally reviewed and shows sinus rhythm Venous Doppler IMPRESSION: 1. No evidence of deep venous thrombosis involving the bilateral lower extremities. 2. Small left-sided Joseph's cyst. Assessment/Plan Assessment/Plan 1. Altered mental status due to hypercapnic respiratory failure 2. Obstructive sleep apnea noncompliant with home CPAP therapy 3. History of mild COPD 4. Pulmonary hypertension 5. Chronic lower extremity edema 6. Obesity 7. Hyperlipidemia Patient appears to be improving with the BiPAP therapy. Mental status has improved. No evidence of acute coronary syndrome. No evidence of pulmonary edema , can resume her outpatient diuretic therapy for chronic lower extremity edema. Would recommend repeat echocardiogram as her last echocardiogram was reportedly in 2013. Peyman Andrews MD [facility] Consult Acknowledgment - Thank you for your consult request.
--- NOTE | 2016-07-10 13:01 | Cons- CRCU ---
General Information and HPI Consulting Request Date of Consult: 07/10/16 Requested By: MEd team History of Present Illness: his is a 76-year-old female with a past medical history of sleep apnea noncompliant with home CPAP, COPD, obesity, chronic lower extremity edema, arthritis, and pulmonary hypertension who presented to [facility] with a chief complaint of increased lethargy. The patient's daughter found the patient to be slumped over in her chair and minimally arousable. She apparently had a recent admission for similar complaints at [facility] in March. She apparently did have a nonproductive the cough without subjective fevers. No recent complaints of chest pain, palpitations, diarrhea, headache, slurring of speech, focal weakness, or increasing edema. She does have chronic lower extremity edema. On presentation the patient was found to have significant respiratory acidosis on ABG. WHen I saw her pt was on bipap and was answering all questions Has had significant on and off multiple respiratory failure episodes requiring multiple admissions to [facility] in the past 2 years. Patient has had a previous sleep study and she also has severe obesity hypoventilation syndrome and she was supposed to have been given BiPAP before and she was not using that at home. As she is claustrophobic she has refused to use it. We'll do in the last admission to [facility] dad discharge her to short -term rehabilitation and patient was not using BiPAP. Previously she has had the multiple admissions with UTI as well. No burning during urination. Review of Systems Constitutional: Denies: chills, diaphoresis, fever, weakness. EENTM: Denies: visual changes. Cardiovascular: Denies: chest pain, orthopena, palpitations. Respiratory: Reports: cough, sputum production. Denies: hemoptysis, orthopnea, short of breath, wheezing. GI: Denies: abdominal pain, bloating, constipation, diarrhea, nausea, vomiting. Genitourinary: Reports: no symptoms. Musculoskeletal: Reports: no symptoms. Neurological/Psychological: Denies: headache, numbness, tingling, tremors, unable to move lower ext, unable to move upper ext. Allergies/Medications Allergies: Coded Allergies: morphine (CO2 GOES UP PER PT DAUGHTER 07/09/16) Home Med List: Acetazolamide 250 MG TABLET 1 TAB PO Friday KIDNEY (Reported) Albuterol Sulfate (Proair Hfa) 90 MCG HFA.AER.AD 2 PUF INH Q4-6 PRN PRN wheezing Budesonide/Formoterol Fumarate (Symbicort 160-4.5 Mcg Inhaler) 160 MCG-4.5 MCG/ ACTUATION HFA.AER.AD 2 PUF INH BID copd (Reported) Buspirone HCl 5 MG TABLET 1 TAB PO BID mental health (Reported) Esomeprazole (Nexium) 40 MG CAP 1 CAP PO DAILY GI (Reported) Furosemide 40 MG TAB 1 TAB PO DAILY DIURETIC (Reported) Gabapentin 100 MG CAPSULE 1 CAP PO BID neuropathy (Reported) Montelukast Sodium (Singulair) 10 MG TAB 1 TAB PO DAILY COPD (Reported) Pantoprazole Sodium 40 MG TABLET.DR 1 TAB PO DAILY GI (Reported) Potassium Chloride 20 MEQ TAB.ER.PRT 1 TAB PO DAILY SUPPLEMENT (Reported) Rosuvastatin Calcium (Crestor) 40 MG TAB 40 MG PO DAILY CHOLESTEROL (Reported ) Sennosides/Docusate Sodium (Docusate Sodium-Senna Tablet) 8.6 MG-50 MG TABLET 2 TAB PO QHS PRN GI (Reported) Review of Systems Review of Systems Constitutional: Reports: see HPI. Past History Travel History Traveled to [place] past 21 day No Medical History Blood Transfusion Hx: No Neurological: NONE EENT: cataracts Cardiovascular: hyperlipidemia Respiratory: asthma, COPD, hYPERCARBIC RESPIRATORY FAILURE Gastrointestinal: NONE Hepatic: NONE Renal: urinary incontinence, KIDNEY STONES Musculoskeletal: arthritis Psychiatric: NONE Endocrine: obesity Blood Disorders: DVT Cancer(s): endometrial cancer RN CLINICAL APPEALS/Reproductive: HYSTERECTOMY Surgical History Surgical History: HYSTERECTOMY RIGHT FOOT CHOLEYSYSTECTOMY APPENDECTOMY Psychosocial History Where Do You Live? Home Services at Home: Home Health Aide, Nursing Smoking Status: Former Smoker ETOH Use: denies use Illicit Drug Use: denies illicit drug use Exam & Diagnostic Data Last 24 Hrs of Vital Signs/I&O Vital Signs Date Time Temp Pulse Resp B/P Pulse O2 O2 Flow FiO2 Ox Delivery Rate 07/10 1205 94 Nasal 3.0L Cannula 07/10 1147 78 97 07/10 0904 78 94 07/10 0800 92 Nasal 3.0L Cannula 07/10 08 98.0 76 14 102/60 92 Nasal 3.0L Cannula 07/10 0459 92 Nasal 5.0L Cannula 07/10 045 88 95 07/10 0400 96 BIPAP 40% 07/10 0322 67 94 07/10 0033 65 91 07/10 0030 66 84 07/10 0000 98 BIPAP 30% 07/10 0000 98.7 72 33 100/60 98 BIPAP 30% 07/09 2357 77 93 07/09 2257 98.4 75 18 147/95 86 BIPAP 30% 07/09 2210 92 07/09 2038 76 93 07/09 1940 95 Nasal 3.5L Cannula 07/09 1934 98.6 81 18 113/56 97 Room Air Intake & Output 07/10 1600 07/10 0800 07/10 0000 Intake Total 372 Output Total 400 160 Balance -28 -160 Intake, IV 372 Intake, Oral 0 Number 0 Bowel Movements Output, Urine 400 160 Patient 246 lb 246 lb Weight Last 48 Hrs of Labs/Luigi: Laboratory Tests 07/10/16 0840: Troponin I < 0.01, D-Dimer 1003 H 07/10/16 0825: pH 7.25 *L, pCO2 82 *H, pO2 71 L, HCO3 35 H, ABG O2 Sat (Measured) 92.0 L, Carboxyhemoglobin 2.0, O2 Concentration % 2LPM, Temperature 98.0, O2 Delivery Method NC, Phlebotomy Draw Site LEFT RADIAL 07/10/16 0800: Troponin I Cancelled 07/10/16 0500: Sodium Cancelled, Potassium Cancelled, Chloride Cancelled, Carbon Dioxide Cancelled, Anion Gap Cancelled, BUN Cancelled, Creatinine Cancelled, Glucose Cancelled, Calcium Cancelled, Phosphorus Cancelled, Magnesium Cancelled, Total Bilirubin Cancelled, AST Cancelled, ALT Cancelled, Albumin Cancelled, CBC w Diff Cancelled, WBC Cancelled, RBC Cancelled, Hgb Cancelled, Hct Cancelled, MCV Cancelled, MCH Cancelled, RDW Cancelled, Plt Count Cancelled, MPV Cancelled, PUBS MCHC Cancelled 07/10/16 0424: Anion Gap 12, Estimated GFR 48 L, Glucose 146 H, Calcium 7.6 L, Phosphorus 3.9, Magnesium 1.8, Total Bilirubin 0.5, AST 17, ALT 28, Troponin I < 0.01, Albumin 3.0 L, PT 11.8, INR 1.13, CBC w Diff MAN DIFF ORDERED, RBC 4.60, MCV 69.4 L, MCH 20.3 L, RDW 18.2 H, MPV 7.6, Gran % 92.5 H, Lymphocytes % 7.1 L , Monocytes % 0.4 L, Eosinophils % 0, Basophils % 0 L, Absolute Granulocytes 8.1 H, Segmented Neutrophils 85 H, Band Neutrophils 1, Absolute Lymphocytes 0.6 L, Lymphocytes 12 L, Monocytes 2, Absolute Monocytes 0 L, Absolute Eosinophils 0, Absolute Basophils 0, Nucleated RBCs 4 H, Platelet Estimate ADEQUATE, Polychromasia 1+, Hypochromic-Microcytic 2+, Poikilocytosis 2+, Basophilic Stippling 1+, Anisocytosis 2+, Microcytic Cells 2+, Ovalocytes 1+, Stomatocytes 1+, Elliptocytes FEW, PUBS MCHC 29.3 L, Fld Total RBCs Counted 100 07/10/16 0200: Troponin I Cancelled 07/09/16 2251: Lactic Acid Cancelled 07/09/16 2215: pH 7.26 *L, pCO2 74 *H, pO2 72 L, HCO3 32 H, ABG O2 Sat (Measured) 92.0 L, P- 50 (Temp Corrected) N, Carboxyhemoglobin 1.3 L, O2 Concentration % 30%, Temperature 98.6, Respiration Rate 28, O2 Delivery Method BIPAP, Vent Mode ST, Expiratory Pressure 6, Inspiratory Pressure 18, Phlebotomy Draw Site RIGHT RADIAL 07/09/16 2100: Urine Opiates Screen > 4000.00 H, Methadone Screen < 40, Barbiturate Screen < 60, Ur Phencyclidine Scrn < 6.00, Amphetamines Screen < 100, U Benzodiazepines Scrn < 85, Urine Cocaine Screen < 50, Urine Cannabis Screen < 5.00, Urinalysis LIGHT H, Urine Color YEL, Urine Clarity HAZY H, Urine pH 6.0, Ur Specific [place] 1.025, Urine Protein 100 H, Urine Ketones NEG, Urine Nitrite NEG, Urine Bilirubin NEG, Urine Urobilinogen 0.2, Ur Leukocyte Esterase NEG, Ur Microscopic SEDIMENT EXAMINED, Urine RBC 1-3, Urine WBC 1-3 H, Ur Epithelial Cells FEW, Hyaline Casts 1-3 H, Urine Mucus FEW, Urine Hemoglobin SMALL H, Urine Glucose NEG 07/09/162038: Anion Gap 11, Estimated GFR 44 L, BUN/Creatinine Ratio 15.0, Glucose 121 H, Lactic Acid 1.0, Calcium 8.1 L, Phosphorus 4.4, Magnesium 1.8, Iron 24 L, TIBC 482, Ferritin 13.2, Total Bilirubin 0.8, AST 17, ALT 29, Alkaline Phosphatase 129 H, Troponin I < 0.01, Total Protein 6.6, Albumin 3.4 L, Globulin 3.2, Albumin/Globulin Ratio 1.1, PT 11.6, INR 1.11, CBC w Diff NO MAN DIFF REQ, RBC 5.07, MCV 69.3 L, MCH 20.5 L, RDW 18.0 H, MPV 7.6, Gran % 87.9 H, Lymphocytes % 7.7 L, Monocytes % 3.8, Eosinophils % 0.4, Basophils % 0.2, Absolute Granulocytes 6.1, Absolute Lymphocytes 0.5 L, Absolute Monocytes 0.3, Absolute Eosinophils 0, Absolute Basophils 0, PUBS MCHC 29.6 L 07/09/162004: pH 7.12 *L, pCO2 104 *H, pO2 75 L, HCO3 37 H, ABG O2 Sat (Measured) 91.0 L, P -50 (Temp Corrected) N, Carboxyhemoglobin 1.2 L, O2 Concentration % 2.5L, Temperature 98.6, O2 Delivery Method NC, Phlebotomy Draw Site RIGHT RADIAL 07/09/161950: Hemoglobin A1c Pending Microbiology 07/09 2099 URINE ROUT: Legionella Antigen - COMP 07/09 2099 URINE ROUT: Streptococcus pneumoniae Antigen (M - COMP SIGNIFICANT DATA Lower extremity ultrasound, unremarkable small Joseph's cyst no DVT chest x-ray unremarkable previous VQ scan in 2014 very low probability Remote CT scan of the chest had shown no significant emphysema and patient has moderate hiatal hernia no PE in 2013. Assessment/Plan Impression/Plan: Physical Exam General Appearance Alert, oriented x2, in mild respiratory distress on BiPAP HEENT Atraumatic, PERRLA, EOMI, dry mucous membranes Neck Supple, No JVD, +2 Carotid Pulse wo Bruit, No LAD Cardiovascular Regular Rate, Normal S1, Normal S2, No Murmurs Lungs B/l decreased breath sounds Abdomen Normal Bowel Sounds, Soft, No Tenderness Neurological Normal Speech Extremities RLE more swollen compared to LLE. B/l edema in LEs. Vascular Normal Pulses, Pulses Symmetrical IMPRESSION This is a morbidly obese lady with history of chronic lung disease who has probably mild COPD with significant restrictive pulmonary disease due to morbid obesity with no emphysema noted in the CAT scan has a following issues * Main issues and acute on chronic hypercarbic insufficiency and failure probably related to untreated sleep apnea probably obstructive versus central sleep apnea and pt has refused senior living cpap or bipap no evidence suggestive of any severe COPD exacerbation, may have had mild bronchitis with mild ACOPDE * Significant pulmonary hypertension with PA pressures more than 55 most likely related to her untreated obstructive sleep apnea versus central apnea. PT has had remote history of dvt and was on warfarin for more than a yr and no recent dvt and previous pe work up neg so far and pt was prob not on warfarin lately * Morbid obesity playing a role * Significant restrictive lung disease as well due to her body habitus * Chronic lower ext edema * CKD with MARY KATE better, due to HTN etc * Elevated sugar with glucose intol * Chronic microcytic anemia needs gi work up and pt not too keen now * Chronic hyponatremia * Hyperlipedemia * Sig anxiety and peripheral neuropathy on buspar and gabapentin * Chronic tremor in the rt hand with previous neuro eval * Previous history of sig tobacco use Recommendation COnt bipap as seth and daily at hs for now DC iv steroids and change to po prednisone 20 qd for four more days Theophylline 200 at hs ECHO/Cardio eval DC ivf and pt can eat and resume lasix daily and use iv lasix one dose today HOld diamox for now COnt inhalers as she was on before Ok to start buspar tommorow WHen stable will get a vq scan to rule out chronic vte Cont heparin sq Pt counselled about bipap use and she understands Needs nocturnal oxymetry when off bipap to see if she qualifies for bipap for chronic resp failure Call Dr Galvez office and get her sleep study report (her previous pulm MD) Pt is critically ill tts 45 mins Consult Acknowledgment - Thank you for your consult request.
[2016-07-10 16:00] VITALS: BP 108/58
--- NOTE | 2016-07-10 19:09 | ECHOCARDIOGRAM REPORT ---
PAL JOHNSON Age: 76 : 1940 Gender: F Exam Date: 07/10/2016 17:18 Exam Location: [facility] Ht (in): 62 Wt (lb): 246 BSA: 2.28 BP: 102 / 60 Ordering Physician: MONIKA BERNSTEIN MD Referring Physician: Sj Andrews M.D. Technologist: Stacie Munoz RDCS Room Number: 113 Indications: SHORTNESS OF BREATH Rhythm: Sinus Technical Quality: fair to poor FINDINGS Left Ventricle Normal global left ventricular size, wall thickness, systolic function with no obvious regional wall motion abnormalities. Normal left ventricular ejection fraction estimated at 60-65%. Right Ventricle Normal right ventricular size and function. Right Atrium Normal right atrial size. Left Atrium Moderate left atrial dilatation. Mitral Valve Mild mitral annular calcification. Trace to mild mitral regurgitation. Aortic Valve Aortic valve not well visualized, grossly normal. No aortic stenosis. Tricuspid Valve Tricuspid valve is normal in structure and function. Trace to mild tricuspid regurgitation. Right ventricular systolic pressure estimated to be within the normal range at20 mmHg. Pulmonic Valve Pulmonic valve not well visualized, grossly normal. Pericardium No pericardial effusion. Great Vessels Normal size aortic root. CONCLUSIONS Normal left and right ventricular systolic function. Moderate left atrial enlargement. No significant valvular abnormalities noted. Konstantin Hart M.D. (Electronically Signed) Final Date: 10 July 2016 19:08 MEASUREMENTS (Male / Female) Normal Values 2D ECHO LV Diastolic Diameter PLAX 4.1 cm 4.2 - 5.9 / 3.9 - 5.3 cm LV Systolic Diameter PLAX 2.3 cm 2.1 - 4.0 cm LV Fractional Shortening PLAX 43.9 % 25 - 46 % LV Ejection Fraction 2D Teich 75.6 % IVS Diastolic Thickness 0.9 cm LVPW Diastolic Thickness 0.9 cm LV Relative Wall Thickness 0.4 RV Internal Dim ED PLAX 3.7 cm 1.9 - 3.8 cm LVOT Diameter 2.1 cm Aortic Root Diameter 3.1 cm LA Systolic Diameter LX 5.1 cm 3.0 - 4.0 / 2.7 - 3.8 cm LA Volume 47.0 cm 18 - 58 / 22 - 52 cm Ascending Aorta Diameter 3.0 cm DOPPLER AV Peak Velocity 167.0 cm/s AV Peak Gradient 11.2 mmHg AV Mean Velocity 112.0 cm/s AV Mean Gradient 6.0 mmHg AV Velocity Time Integral 33.8 cm LVOT Peak Velocity 141.0 cm/s LVOT Peak Gradient 8.0 mmHg LVOT Mean Velocity 95.6 cm/s LVOT Mean Gradient 4.0 mmHg LVOT Velocity Time Integral 25.8 cm LVOT Stroke Volume 89.4 cm AV Area Cont Eq vti 2.6 cm AV Area Cont Eq pk 2.9 cm MV Peak Velocity 105.0 cm/s MV Peak Gradient 4.4 mmHg MV Mean Velocity 61.4 cm/s MV Mean Gradient 2.0 mmHg Mitral E Point Velocity 107.0 cm/s Mitral A Point Velocity 86.4 cm/s Mitral E to A Ratio 1.2 MV PHT Velocity 104.0 cm/s MV Deceleration [place] 320.0 cm/s MV Pressure Half Time 97.5 ms MV Area PHT 2.3 cm MV Deceleration Time 215.0 ms TR Peak Velocity 162.0 cm/s TR Peak Gradient 10.5 mmHg Right Atrial Pressure 5.0 mmHg Pulmonary Artery Systolic Pressu 15.5 mmHg Right Ventricular Systolic Press 15.5 mmHg PV Peak Velocity 117.0 cm/s PV Peak Gradient 5.5 mmHg PV Mean Velocity 82.7 cm/s PV Mean Gradient 3.0 mmHg PV Velocity Time Integral 26.4 cm LV E' Lateral Velocity 11.1 cm/s Mitral E to LV E' Lateral Ratio 9.6 LV E' Septal Velocity 11.6 cm/s Mitral E to LV E' Septal Ratio 9.2
--- NOTE | 2016-07-10 22:40 | Event Note ---
Event Note Event Note: Around 9.30pm, she was increasingly confused and agitated, pulling on her BiPAP mask. Gave her 0.5mg IV Ativan and placed her on soft bilateral restraints, and placed a sitter. Also called her daughter Emelia. Patient was much calmer subsequently. Will continue to monitor.
[2016-07-11] VITALS: BP 88/60
[2016-07-11 07:39] LABS: ABSOLUTE BASOPHIL COUNT 0 /CUMM (0.0-0.2); ABSOLUTE EOSINOPHIL COUNT 0 /CUMM (0.0-0.7); ABSOLUTE GRANULOCYTE CT 6.8 /CUMM (1.4-6.5); ABSOLUTE LYMPH COUNT 0.6 /CUMM (1.2-3.4); ABSOLUTE MONOCYTE COUNT 0.3 /CUMM (0.10-0.60); BASOPHIL % 0.1 % (0.0-2.0); EOSINOPHIL % 0 % (0-5); HEMATOCRIT 28.9 % (37-47); MEAN CORPUSCULAR HGB 20.3 PG (27.0-31.0); MEAN CORPUSCULAR VOLUME 67.6 FL (81.0-99.0); MEAN PLATELET VOLUME 7.7 FL (7.4-10.4); RBC DISTRIBUTION WIDTH 17.8 % (11.5-14.5); WHITE BLOOD CELL COUNT 7.8 /CUMM (4.8-10.8)
[2016-07-11 08:07] LABS: GRANULOCYTE % 87.8 % (42.2-75.2); PLATELET COUNT 160 /CUMM (130-400); RED BLOOD CELL CT 4.28 /CUMM (4.20-5.40)
--- NOTE | 2016-07-11 08:08 | RADIOLOGY REPORT ---
EXAMINATION: XR PORTABLE CHEST CLINICAL INFORMATION: COPD exacerbation COMPARISON: 07/09/2016 TECHNIQUE: Portable view of the chest was obtained. FINDINGS: Stable cardiomediastinal silhouette. No focal consolidation, pleural effusion or pneumothorax. Probable small hiatal hernia. Osseous structures appear intact. IMPRESSION: No radiographic evidence of acute pulmonary disease. No significant interval change.
--- NOTE | 2016-07-11 11:21 | PN- Cardiology ---
Subjective Subjective: Patient is a little agitated because of IV issues. However anxious to go home. Telemetry sinus rhythm. Objective Vital Signs and I&Os Vital Signs Date Time Temp Pulse Resp B/P Pulse O2 O2 Flow FiO2 Ox Delivery Rate 07/11 0852 94 Nasal 2.0L Cannula 07/11 0550 55 96 07/11 0400 95 BIPAP 40% 07/11 0315 57 95 07/11 0015 67 96 07/11 0000 98.4 63 32 88/60 99 BIPAP 40% 07/11 0000 99 BIPAP 40% 07/10 2200 83 94 07/10 2034 94 BIPAP 40% 07/10 1900 95 BIPAP 40% 07/10 1900 78 95 07/10 1656 65 95 07/10 1600 99.0 64 29 108/58 93 Nasal 3.0L Cannula 07/10 1600 93 Nasal 3.0L Cannula 07/10 1252 Nasal 3.0L Cannula 07/10 1205 94 Nasal 3.0L Cannula 07/10 1200 93 Nasal 3.0L Cannula 07/10 1147 78 97 Intake & Output 07/11 1600 07/11 0800 07/11 0000 07/10 1600 07/10 0800 07/10 0000 Intake Total 440 450 940 372 Output Total 580 290 225 400 160 Balance -140 160 715 -28 -160 Intake, IV 150 700 372 Intake, Oral 300 240 0 Intake, Tube 440 Irrigant Number 0 Bowel Movements Output, Urine 580 290 225 400 160 Patient 246 lb 246 lb Weight Physical Exam: Gen. exam patient slightly agitated but alert oriented does not admit to cardiac complaints Head normocephalic atraumatic Eyes sclera anicteric conjunctiva showed no pallor extraocular muscles were normal Neck no jugular venous distention no thyroid masses no palpable nodes Chest lungs scattered wheezes bilaterally Heart regular rhythm 1/6 systolic murmur Abdomen protuberant bowel sounds normal nontender neck sign extremities no clubbing cyanosis or pedal edema Neurological no gross motor or sensory deficits Current Medications: Current Medications Sig/Yamileth Start time Last Medication Dose Route Stop Time Status Admin Acetaminophen 650 MG Q6PRN PRN 07/09 2245 AC PO Albuterol Sulfate 3 ML BID 07/10 2200 AC 07/11 INH 0849 Atorvastatin Calcium 80 MG 1700 07/10 1700 AC 07/10 PO 1759 Azithromycin 500 MG DAILY 01/11 1000 AC 07/11 Dextrose/Water 250 ML IV 1018 Budesonide/ 2 PUF BID 07/10 1000 AC 07/11 Formoterol Fumarate INH 1017 Buspirone HCl 5 MG BID 07/10 2200 AC 07/11 PO 1019 Furosemide 40 MG DAILY 07/10 1452 AC 07/11 PO 1019 Gabapentin 100 MG BID 07/10 1000 AC 07/11 PO 1019 Heparin Sodium 5,000 UNIT Q8 07/10 0600 AC 07/11 (Porcine) SC 0626 Lorazepam 0.5 MG ONCE ONE 07/10 2199 DC 07/10 IV 07/10 220 2153 Magnesium Oxide 400 MG ONE ONE 07/11 0815 DC 07/11 PO 07/11 0816 1019 Methylprednisolone 40 MG Q8 07/10 0600 DC 07/10 IV 1321 Montelukast Sodium 10 MG 1700 07/10 1700 AC 07/10 PO 1759 Pantoprazole Sodium 40 MG DAILY 07/10 1000 AC 07/11 IV 1019 Prednisone 20 MG DAILY 07/11 1000 AC 07/11 PO 07/14 1001 1019 Senna/Docusate Sodium 2 TAB AT BEDTIME 07/10 2199 AC PO Sodium Chloride 1,000 ML Q8H 07/10 1500 DC IV Sodium Chloride 1,000 ML Q13H 07/09 2230 DC 07/09 IV 07/10 1129 2241 Theophylline 200 MG QPM 07/10 2199 AC PO Results Last 48 Hrs of Labs/Mics: Laboratory Tests 07/11/16 0630: CBC w Diff NO MAN DIFF REQ, RBC 4.28, MCV 67.6 L, MCH 20.3 L, RDW 17.8 H, MPV 7.7, Gran % 87.8 H, Lymphocytes % 7.7 L, Monocytes % 4.4, Eosinophils % 0, Basophils % 0.1, Absolute Granulocytes 6.8 H, Absolute Lymphocytes 0.6 L, Absolute Monocytes 0.3, Absolute Eosinophils 0, Absolute Basophils 0, PUBS MCHC 30.0 L 07/11/16 0545: pH 7.39, pCO2 52 H, pO2 122 H, HCO3 31 H, ABG O2 Sat (Measured) 97.0, P-50 ( Temp Corrected) Y, Carboxyhemoglobin 0.9 L, O2 Concentration % 40%, Temperature 97.7, Respiration Rate 30, O2 Delivery Method VISION-FFM, Vent Mode ST, Expiratory Pressure 6, Inspiratory Pressure 18, Phlebotomy Draw Site RIGHT RADIAL 07/11/16 0530: Anion Gap 11, Estimated GFR 44 L, Glucose 144 H, Calcium 7.9 L, Phosphorus 2.4 L, Magnesium 1.9, Total Bilirubin 0.6, AST 15, ALT 19, Albumin 2.9 L 07/10/16 0840: Troponin I < 0.01, D-Dimer 1003 H 07/10/16 0825: pH 7.25 *L, pCO2 82 *H, pO2 71 L, HCO3 35 H, ABG O2 Sat (Measured) 92.0 L, Carboxyhemoglobin 2.0, O2 Concentration % 2LPM, Temperature 98.0, O2 Delivery Method NC, Phlebotomy Draw Site LEFT RADIAL 07/10/16 0800: Troponin I Cancelled 07/10/16 0500: Sodium Cancelled, Potassium Cancelled, Chloride Cancelled, Carbon Dioxide Cancelled, Anion Gap Cancelled, BUN Cancelled, Creatinine Cancelled, Glucose Cancelled, Calcium Cancelled, Phosphorus Cancelled, Magnesium Cancelled, Total Bilirubin Cancelled, AST Cancelled, ALT Cancelled, Albumin Cancelled, CBC w Diff Cancelled, WBC Cancelled, RBC Cancelled, Hgb Cancelled, Hct Cancelled, MCV Cancelled, MCH Cancelled, RDW Cancelled, Plt Count Cancelled, MPV Cancelled, PUBS MCHC Cancelled 07/10/16 0424: Anion Gap 12, Estimated GFR 48 L, Glucose 146 H, Calcium 7.6 L, Phosphorus 3.9, Magnesium 1.8, Total Bilirubin 0.5, AST 17, ALT 28, Troponin I < 0.01, Albumin 3.0 L, PT 11.8, INR 1.13, CBC w Diff MAN DIFF ORDERED, RBC 4.60, MCV 69.4 L, MCH 20.3 L, RDW 18.2 H, MPV 7.6, Gran % 92.5 H, Lymphocytes % 7.1 L , Monocytes % 0.4 L, Eosinophils % 0, Basophils % 0 L, Absolute Granulocytes 8.1 H, Segmented Neutrophils 85 H, Band Neutrophils 1, Absolute Lymphocytes 0.6 L, Lymphocytes 12 L, Monocytes 2, Absolute Monocytes 0 L, Absolute Eosinophils 0, Absolute Basophils 0, Nucleated RBCs 4 H, Platelet Estimate ADEQUATE, Polychromasia 1+, Hypochromic-Microcytic 2+, Poikilocytosis 2+, Basophilic Stippling 1+, Anisocytosis 2+, Microcytic Cells 2+, Ovalocytes 1+, Stomatocytes 1+, Elliptocytes FEW, PUBS MCHC 29.3 L, Fld Total RBCs Counted 100 07/10/16 0200: Troponin I Cancelled 07/09/16 2251: Lactic Acid Cancelled 07/09/16 2215: pH 7.26 *L, pCO2 74 *H, pO2 72 L, HCO3 32 H, ABG O2 Sat (Measured) 92.0 L, P- 50 (Temp Corrected) N, Carboxyhemoglobin 1.3 L, O2 Concentration % 30%, Temperature 98.6, Respiration Rate 28, O2 Delivery Method BIPAP, Vent Mode ST, Expiratory Pressure 6, Inspiratory Pressure 18, Phlebotomy Draw Site RIGHT RADIAL 07/09/16 2100: Urine Opiates Screen > 4000.00 H, Methadone Screen < 40, Barbiturate Screen < 60, Ur Phencyclidine Scrn < 6.00, Amphetamines Screen < 100, U Benzodiazepines Scrn < 85, Urine Cocaine Screen < 50, Urine Cannabis Screen < 5.00, Urinalysis LIGHT H, Urine Color YEL, Urine Clarity HAZY H, Urine pH 6.0, Ur Specific [place] 1.025, Urine Protein 100 H, Urine Ketones NEG, Urine Nitrite NEG, Urine Bilirubin NEG, Urine Urobilinogen 0.2, Ur Leukocyte Esterase NEG, Ur Microscopic SEDIMENT EXAMINED, Urine RBC 1-3, Urine WBC 1-3 H, Ur Epithelial Cells FEW, Hyaline Casts 1-3 H, Urine Mucus FEW, Urine Hemoglobin SMALL H, Urine Glucose NEG 07/09/162038: Anion Gap 11, Estimated GFR 44 L, BUN/Creatinine Ratio 15.0, Glucose 121 H, Lactic Acid 1.0, Calcium 8.1 L, Phosphorus 4.4, Magnesium 1.8, Iron 24 L, TIBC 482, Ferritin 13.2, Total Bilirubin 0.8, AST 17, ALT 29, Alkaline Phosphatase 129 H, Troponin I < 0.01, Total Protein 6.6, Albumin 3.4 L, Globulin 3.2, Albumin/Globulin Ratio 1.1, PT 11.6, INR 1.11, CBC w Diff NO MAN DIFF REQ, RBC 5.07, MCV 69.3 L, MCH 20.5 L, RDW 18.0 H, MPV 7.6, Gran % 87.9 H, Lymphocytes % 7.7 L, Monocytes % 3.8, Eosinophils % 0.4, Basophils % 0.2, Absolute Granulocytes 6.1, Absolute Lymphocytes 0.5 L, Absolute Monocytes 0.3, Absolute Eosinophils 0, Absolute Basophils 0, PUBS MCHC 29.6 L 07/09/162004: pH 7.12 *L, pCO2 104 *H, pO2 75 L, HCO3 37 H, ABG O2 Sat (Measured) 91.0 L, P -50 (Temp Corrected) N, Carboxyhemoglobin 1.2 L, O2 Concentration % 2.5L, Temperature 98.6, O2 Delivery Method NC, Phlebotomy Draw Site RIGHT RADIAL 07/09/161950: Hemoglobin A1c 6.8 H Microbiology 07/10 231 UPPER RESP: Surveillance Culture - COMP 07/10 231 GI: Surveillance Culture - COMP 07/09 2099 URINE ROUT: Legionella Antigen - COMP 07/09 2099 URINE ROUT: Streptococcus pneumoniae Antigen (M - COMP Assessment/Plan Assessment/Plan In summary this 76-year-old female has the following problems 1. Altered mental status due to hypercapnic respiratory failure 2. Obstructive sleep apnea noncompliant with home CPAP therapy 3. History of mild COPD 4. Pulmonary hypertension 5. Chronic lower extremity edema 6. Obesity 7. Hyperlipidemia She has no acute cardiac issues at the moment and no arrhythmias. She is being transferred to general medicine. She was instructed to see us in the office as an outpatient. We will sign off. Thank you for underlying us the opportunity of participating in her care Continue telemetry? No
--- NOTE | 2016-07-11 11:29 | PN- Resident CRCU ---
Subjective HPI/CRCU Issues: Patient seen and examined. She is seen sitting upright in bed resting comfortably. She is maintained on supplemental oxygen via nasal cannula and is in no acute respiratory distress. She reports feeling fine and has no complaints at this time. At her bedside is her daughter whom is up-to-date about her mother's medical condition and has no questions at this time. Otherwise she denies any headache, fever, chills, chest pain, increased shortness of breath, nausea, vomiting, diarrhea. She was reportedly confused for which a sitter was ordered to encourage the patient to wear her supplemental oxygen. Objective Vital Signs & I&O Last 8 Hrs of Vitals and I&O: Vitals: - Temperature: 98.4 - Heart Rate: 50-70 - Respiratory Rate: 20-30 - Systolic Blood pressure: 89-100 - Diastolic Blood pressure: 41-59 - Oxygen Saturation: 94-99% 2.0 L via nasal cannula Exam General Appearance: well developed/nourished, no apparent distress, alert, awake , comfortable, obese Other Physical Findings: General -well-developed, well-nourished obese female in no acute distress HEENT - NCAT, PERRL, EOMI, anicteric sclera, nasal cannula in place Cardio - S1, S2 w/o murmurs/gallops/rubs Resp -diminished airflow without crackles/wheezing GI -soft, obese, nontender, nondistended, bowel sounds present Neuro - Awake and alert, CN II - XII grossly intact, oriented only to person Extremities-1+ bilateral lower extremity edema, pulses intact Current Medications: Current Medications Sig/Yamileth Start time Last Medication Dose Route Stop Time Status Admin Acetaminophen 650 MG Q6PRN PRN 07/09 2245 AC PO Albuterol Sulfate 3 ML BID 07/10 2199 AC 07/11 INH 0849 Atorvastatin Calcium 80 MG 1700 07/10 1700 AC 07/10 PO 1759 Azithromycin 500 MG DAILY 07/10 1000 AC 07/11 Dextrose/Water 250 ML IV 1018 Budesonide/ 2 PUF BID 07/10 1000 AC 07/11 Formoterol Fumarate INH 1017 Buspirone HCl 5 MG BID 07/10 2200 AC 07/11 PO 1019 Furosemide 40 MG DAILY 07/10 1452 AC 07/11 PO 1019 Gabapentin 100 MG BID 07/10 1000 AC 07/11 PO 1019 Heparin Sodium 5,000 UNIT Q8 07/10 0600 AC 07/11 (Porcine) SC 0626 Lorazepam 0.5 MG ONCE ONE 07/10 2200 DC 07/10 IV 07/10 220 2153 Magnesium Oxide 400 MG ONE ONE 07/11 0815 DC 07/11 PO 07/11 0816 1019 Methylprednisolone 40 MG Q8 07/10 0600 DC 07/10 IV 1321 Montelukast Sodium 10 MG 1700 07/10 1700 AC 07/10 PO 1759 Pantoprazole Sodium 40 MG DAILY 07/10 1000 AC 07/11 IV 1019 Prednisone 20 MG DAILY 07/11 1000 AC 07/11 PO 07/14 1001 1019 Senna/Docusate Sodium 2 TAB AT BEDTIME 07/10 220 AC PO Sodium Chloride 1,000 ML Q8H 07/10 1500 DC IV Sodium Chloride 1,000 ML Q13H 07/09 2230 DC 07/09 IV 07/10 1129 2241 Theophylline 200 MG QPM 07/10 2199 AC PO Impression/Plan Impression/Problem List Impression: Patient is only oriented to person but is reportedly at baseline per her daughter's assessment. Patient has been seen without supplemental oxygen at various times throughout the day however has not been hypoxic during these times below the tolerated range of 88-92%. Intravenous steroids were discontinued yesterday and patient was started on an oral prednisone regimen. She is considered medically stable from an intensive care unit perspective and is to be transferred to the general medicine floor once a bed is available. 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 Multiple readmissions for similar complaints over the past 2 years. She has been notoriously noncompliant with medications, supplemental oxygen, and CPAP at night. -Continue Albuterol/Symbicort -Azithromycin 500mg IV Daily -Prednisone 20mg PO daily for four days -Theophylline 200mg PO QHS -Montelukast 10mg PO daily -Pulmonology consult following Cardiovascular: Patient with a history of hyperlipidemia and pulmonary hypertension. -ECHO: EF 60-65%, no wall motion abnormalities -Atorvastatin 80mg PO Daily -Lasix 40mg PO Daily Psychiatry: -Buspar 5mg PO BID Endocrine: -Gabapentin 100mg PO BID Diet - Regular Diet DVT PPx - Heparin SC Code status - FULL CODE Problem List: 1. Acute hypercapnic respiratory failure Pain Ratin Tomorrow's Labs & Rationales: CBC ICU Plan DVT/Prophylaxis: mechanical, pharmacological
--- NOTE | 2016-07-11 12:58 | PN- Pulmonary ---
Subjective HPI/Critical Care Issues: Patient seen and examined. She is seen sitting upright in bed resting comfortably. She is maintained on supplemental oxygen via nasal cannula and is in no acute respiratory distress. She reports feeling fine and has no complaints at this time. At her bedside is her daughter whom is up-to-date about her mother's medical condition and has no questions at this time. Otherwise she denies any headache, fever, chills, chest pain, increased shortness of breath, nausea, vomiting, diarrhea. Objective Current Medications: Current Medications Sig/Yamileth Start time Last Medication Dose Route Stop Time Status Admin Acetaminophen 650 MG Q6PRN PRN 07/09 2245 AC PO Albuterol Sulfate 3 ML BID 07/10 2200 AC 07/11 INH 0849 Atorvastatin Calcium 80 MG 1700 07/10 1700 AC 07/10 PO 1759 Azithromycin 500 MG DAILY 07/10 1000 AC 07/11 Dextrose/Water 250 ML IV 1018 Budesonide/ 2 PUF BID 07/10 1000 AC 07/11 Formoterol Fumarate INH 1017 Buspirone HCl 5 MG BID 07/10 2200 AC 07/11 PO 1019 Furosemide 40 MG DAILY 07/10 1452 AC 07/11 PO 1019 Gabapentin 100 MG BID 07/10 1000 AC 07/11 PO 1019 Heparin Sodium 5,000 UNIT Q8 07/10 0600 AC 07/11 (Porcine) SC 0626 Lorazepam 0.5 MG ONCE ONE 07/10 2199 DC 07/10 IV 07/10 220 2153 Magnesium Oxide 400 MG ONE ONE 07/11 0815 DC 07/11 PO 07/11 0816 1019 Methylprednisolone 40 MG Q8 07/10 0600 DC 07/10 IV 1321 Montelukast Sodium 10 MG 1700 07/10 1700 AC 07/10 PO 1759 Pantoprazole Sodium 40 MG DAILY 07/10 1000 AC 07/11 IV 1019 Prednisone 20 MG DAILY 07/11 1000 AC 07/11 PO 07/14 1001 1019 Senna/Docusate Sodium 2 TAB AT BEDTIME 07/10 2199 AC PO Sodium Chloride 1,000 ML Q8H 07/10 1500 DC IV Theophylline 200 MG QPM 07/10 220 AC PO Vital Signs & I&O Last 24 Hrs of Vitals and I&O: Vital Signs Date Time Temp Pulse Resp B/P Pulse O2 O2 Flow FiO2 Ox Delivery Rate 07/11 1220 73 96 07/11 0852 94 Nasal 2.0L Cannula 07/11 08 96 Nasal 2.0L Cannula 07/11 0550 55 96 07/11 0400 95 BIPAP 40% 07/11 0315 57 95 07/11 0015 67 96 07/11 0000 98.4 63 32 88/60 99 BIPAP 40% 07/11 0000 99 BIPAP 40% 07/100 83 94 07/10 2033 94 BIPAP 40% 07/10 1900 95 BIPAP 40% 07/10 1900 78 95 07/10 1656 65 95 07/10 1600 99.0 64 29 108/58 93 Nasal 3.0L Cannula 07/10 1600 93 Nasal 3.0L Cannula Intake & Output 07/11 1600 07/11 0800 07/11 0000 Intake Total 440 450 Output Total 580 290 Balance -140 160 Intake, IV 150 Intake, Oral 300 Intake, Tube 440 Irrigant Output, Urine 580 290 Laboratory Tests 07/11 07/11 07/11 0630 0545 0530 Blood Gas pH (7.35 - 7.45 PH) 7.39 pCO2 (35 - 45 TORR) 52 H pO2 (80 - 100 TORR) 122 H HCO3 (21 - 28 MEQ/L) 31 H ABG O2 Sat (Measured) (>96.0 %) 97.0 P-50 (Temp Corrected) Y Carboxyhemoglobin (1.5 - 5.0 %) 0.9 L O2 Concentration % 40% Temperature (97.0 - 100.0 FARH) 97.7 Respiration Rate (BPM) 30 O2 Delivery Method VISION-FFM Vent Mode ST Expiratory Pressure (CM H2O P) 6 Inspiratory Pressure (CM H2O P) 18 Chemistry Sodium (137 - 145 mmol/L) 136 L Potassium (3.5 - 5.1 mmol/L) 4.2 Chloride (98 - 107 mmol/L) 90 L Carbon Dioxide (22 - 30 mmol/L) 35 H Anion Gap (5 - 16) 11 BUN (7 - 17 mg/dL) 29 H Creatinine (0.5 - 1.0 mg/dL) 1.2 H Estimated GFR (>60 ml/min) 44 L Glucose (65 - 99 mg/dL) 144 H Calcium (8.4 - 10.2 mg/dL) 7.9 L Phosphorus (2.5 - 4.5 mg/dL) 2.4 L Magnesium (1.6 - 2.3 mg/dL) 1.9 Total Bilirubin (0.2 - 1.3 mg/dL) 0.6 AST (14 - 36 U/L) 15 ALT (9 - 52 U/L) 19 Albumin (3.5 - 5.0 g/dL) 2.9 L Hematology CBC w Diff NO MAN DIFF REQ WBC (4.8 - 10.8 /CUMM) 7.8 RBC (4.20 - 5.40 /CUMM) 4.28 Hgb (12.0 - 16.0 G/DL) 8.7 L Hct (37 - 47 %) 28.9 L MCV (81.0 - 99.0 FL) 67.6 L MCH (27.0 - 31.0 PG) 20.3 L RDW (11.5 - 14.5 %) 17.8 H Plt Count (130 - 400 /CUMM) 160 MPV (7.4 - 10.4 FL) 7.7 Gran % (42.2 - 75.2 %) 87.8 H Lymphocytes % (20.5 - 51.1 %) 7.7 L Monocytes % (1.7 - 9.3 %) 4.4 Eosinophils % (0 - 5 %) 0 Basophils % (0.0 - 2.0 %) 0.1 Absolute Granulocytes (1.4 - 6.5 /CUMM) 6.8 H Absolute Lymphocytes (1.2 - 3.4 /CUMM) 0.6 L Absolute Monocytes (0.10 - 0.60 /CUMM) 0.3 Absolute Eosinophils (0.0 - 0.7 /CUMM) 0 Absolute Basophils (0.0 - 0.2 /CUMM) 0 PUBS MCHC (33.0 - 37.0 G/DL) 30.0 L Miscellaneous Phlebotomy Draw Site RIGHT RADIAL 07/10 07/10 07/10 07/10 0840 0825 0800 0500 Blood Gas pH (7.35 - 7.45 PH) 7.25 *L pCO2 (35 - 45 TORR) 82 *H pO2 (80 - 100 TORR) 71 L HCO3 (21 - 28 MEQ/L) 35 H ABG O2 Sat (Measured) (>96.0 %) 92.0 L Carboxyhemoglobin (1.5 - 5.0 %) 2.0 O2 Concentration % 2LPM Temperature (97.0 - 100.0 FARH) 98.0 O2 Delivery Method NC Chemistry Sodium Cancelled Potassium Cancelled Chloride Cancelled Carbon Dioxide Cancelled Anion Gap Cancelled BUN Cancelled Creatinine Cancelled Glucose Cancelled Calcium Cancelled Phosphorus Cancelled Magnesium Cancelled Total Bilirubin Cancelled AST Cancelled ALT Cancelled Troponin I (< 0.11 ng/ml) < 0.01 Cancelled Albumin Cancelled Coagulation D-Dimer (70 - 232 ng/ml) 1003 H Hematology CBC w Diff Cancelled WBC Cancelled RBC Cancelled Hgb Cancelled Hct Cancelled MCV Cancelled MCH Cancelled RDW Cancelled Plt Count Cancelled MPV Cancelled PUBS MCHC Cancelled Miscellaneous Phlebotomy Draw Site LEFT RADIAL 07/10 07/10 0424 0200 Chemistry Sodium (137 - 145 mmol/L) 137 Potassium (3.5 - 5.1 mmol/L) 4.4 Chloride (98 - 107 mmol/L) 93 L Carbon Dioxide (22 - 30 mmol/L) 33 H Anion Gap (5 - 16) 12 BUN (7 - 17 mg/dL) 18 H Creatinine (0.5 - 1.0 mg/dL) 1.1 H Estimated GFR (>60 ml/min) 48 L Glucose (65 - 99 mg/dL) 146 H Calcium (8.4 - 10.2 mg/dL) 7.6 L Phosphorus (2.5 - 4.5 mg/dL) 3.9 Magnesium (1.6 - 2.3 mg/dL) 1.8 Total Bilirubin (0.2 - 1.3 mg/dL) 0.5 AST (14 - 36 U/L) 17 ALT (9 - 52 U/L) 28 Troponin I (< 0.11 ng/ml) < 0.01 Cancelled Albumin (3.5 - 5.0 g/dL) 3.0 L Coagulation PT (9.4 - 12.5 SEC) 11.8 INR (0.90 - 1.19) 1.13 Hematology CBC w Diff MAN DIFF ORDERED WBC (4.8 - 10.8 /CUMM) 8.8 RBC (4.20 - 5.40 /CUMM) 4.60 Hgb (12.0 - 16.0 G/DL) 9.3 L Hct (37 - 47 %) 31.9 L MCV (81.0 - 99.0 FL) 69.4 L MCH (27.0 - 31.0 PG) 20.3 L RDW (11.5 - 14.5 %) 18.2 H Plt Count (130 - 400 /CUMM) 164 MPV (7.4 - 10.4 FL) 7.6 Gran % (42.2 - 75.2 %) 92.5 H Lymphocytes % (20.5 - 51.1 %) 7.1 L Monocytes % (1.7 - 9.3 %) 0.4 L Eosinophils % (0 - 5 %) 0 Basophils % (0.0 - 2.0 %) 0 L Absolute Granulocytes (1.4 - 6.5 /CUMM) 8.1 H Segmented Neutrophils (42.2 - 75.2 %) 85 H Band Neutrophils (0.0 - 5.0 %) 1 Absolute Lymphocytes (1.2 - 3.4 /CUMM) 0.6 L Lymphocytes (20.5 - 51.1 %) 12 L Monocytes (1.7 - 9.3 %) 2 Absolute Monocytes (0.10 - 0.60 /CUMM) 0 L Absolute Eosinophils (0.0 - 0.7 /CUMM) 0 Absolute Basophils (0.0 - 0.2 /CUMM) 0 Nucleated RBCs (0.0 - 0.0 /100WBC) 4 H Platelet Estimate (ADEQUATE) ADEQUATE Polychromasia 1+ Hypochromic-Microcytic 2+ Poikilocytosis 2+ Basophilic Stippling 1+ Anisocytosis 2+ Microcytic Cells 2+ Ovalocytes 1+ Stomatocytes 1+ Elliptocytes FEW PUBS MCHC (33.0 - 37.0 G/DL) 29.3 L Other Body Source Fld Total RBCs Counted (%) 100 07/09 07/09 4080 8330 Blood Gas pH (7.35 - 7.45 PH) 7.26 *L pCO2 (35 - 45 TORR) 74 *H pO2 (80 - 100 TORR) 72 L HCO3 (21 - 28 MEQ/L) 32 H ABG O2 Sat (Measured) (>96.0 %) 92.0 L P-50 (Temp Corrected) N Carboxyhemoglobin (1.5 - 5.0 %) 1.3 L O2 Concentration % 30% Temperature (97.0 - 100.0 FARH) 98.6 Respiration Rate (BPM) 28 O2 Delivery Method BIPAP Vent Mode ST Expiratory Pressure (CM H2O P) 6 Inspiratory Pressure (CM H2O P) 18 Chemistry Lactic Acid Cancelled Miscellaneous Phlebotomy Draw Site RIGHT RADIAL 07/09 Chemistry Sodium (137 - 145 mmol/L) 136 L Potassium (3.5 - 5.1 mmol/L) 3.7 Chloride (98 - 107 mmol/L) 87 L Carbon Dioxide (22 - 30 mmol/L) 37 H Anion Gap (5 - 16) 11 BUN (7 - 17 mg/dL) 18 H Creatinine (0.5 - 1.0 mg/dL) 1.2 H Estimated GFR (>60 ml/min) 44 L BUN/Creatinine Ratio (7 - 25 %) 15.0 Glucose (65 - 99 mg/dL) 121 H Lactic Acid (0.7 - 2.1 mmol/L) 1.0 Calcium (8.4 - 10.2 mg/dL) 8.1 L Phosphorus (2.5 - 4.5 mg/dL) 4.4 Magnesium (1.6 - 2.3 mg/dL) 1.8 Iron (37 - 170 ug/dL) 24 L TIBC (265 - 497 ug/dL) 482 Ferritin (11.1 - 264 ng/mL) 13.2 Total Bilirubin (0.2 - 1.3 mg/dL) 0.8 AST (14 - 36 U/L) 17 ALT (9 - 52 U/L) 29 Alkaline Phosphatase (<127 U/L) 129 H Troponin I (< 0.11 ng/ml) < 0.01 Total Protein (6.3 - 8.2 g/dL) 6.6 Albumin (3.5 - 5.0 g/dL) 3.4 L Globulin (1.9 - 4.2 gm/dL) 3.2 Albumin/Globulin Ratio (1.1 - 2.2 %) 1.1 Coagulation PT (9.4 - 12.5 SEC) 11.6 INR (0.90 - 1.19) 1.11 Hematology CBC w Diff NO MAN DIFF REQ WBC (4.8 - 10.8 /CUMM) 6.9 RBC (4.20 - 5.40 /CUMM) 5.07 Hgb (12.0 - 16.0 G/DL) 10.4 L Hct (37 - 47 %) 35.1 L MCV (81.0 - 99.0 FL) 69.3 L MCH (27.0 - 31.0 PG) 20.5 L RDW (11.5 - 14.5 %) 18.0 H Plt Count (130 - 400 /CUMM) 175 MPV (7.4 - 10.4 FL) 7.6 Gran % (42.2 - 75.2 %) 87.9 H Lymphocytes % (20.5 - 51.1 %) 7.7 L Monocytes % (1.7 - 9.3 %) 3.8 Eosinophils % (0 - 5 %) 0.4 Basophils % (0.0 - 2.0 %) 0.2 Absolute Granulocytes (1.4 - 6.5 /CUMM) 6.1 Absolute Lymphocytes (1.2 - 3.4 /CUMM) 0.5 L Absolute Monocytes (0.10 - 0.60 /CUMM) 0.3 Absolute Eosinophils (0.0 - 0.7 /CUMM) 0 Absolute Basophils (0.0 - 0.2 /CUMM) 0 PUBS MCHC (33.0 - 37.0 G/DL) 29.6 L Toxicology Urine Opiates Screen (>2000 NG/ML) > 4000.00 H Methadone Screen (>300 NG/ML) < 40 Barbiturate Screen (>200 NG/ML) < 60 Ur Phencyclidine Scrn (>25 NG/ML) < 6.00 Amphetamines Screen (>1000 NG/ML) < 100 U Benzodiazepines Scrn (>200 NG/ML) < 85 Urine Cocaine Screen (>300 NG/ML) < 50 Urine Cannabis Screen (>50 NG/ML) < 5.00 Urines Urinalysis LIGHT H Urine Color (YEL,AMB,STR) YEL Urine Clarity (CLEAR) HAZY H Urine pH (5.0 - 8.0) 6.0 Ur Specific Gering (1.001 - 1.035) 1.025 Urine Protein (NEG,<30 MG/DL) 100 H Urine Ketones (NEG) NEG Urine Nitrite (NEG) NEG Urine Bilirubin (NEG) NEG Urine Urobilinogen (0.1 - 1.0 EU/dl) 0.2 Ur Leukocyte Esterase (NEG) NEG Ur Microscopic SEDIMENT EXAMINED Urine RBC (0 - 5 /HPF) 1-3 Urine WBC (0 - 2 /HPF) 1-3 H Ur Epithelial Cells (NONE,FEW) FEW Hyaline Casts (0/LPF) 1-3 H Urine Mucus (FEW,NONE) FEW Urine Hemoglobin (NEG) SMALL H Urine Glucose (N MG/DL) NEG 07/09 Blood Gas pH (7.35 - 7.45 PH) 7.12 *L pCO2 (35 - 45 TORR) 104 *H pO2 (80 - 100 TORR) 75 L HCO3 (21 - 28 MEQ/L) 37 H ABG O2 Sat (Measured) (>96.0 %) 91.0 L P-50 (Temp Corrected) N Carboxyhemoglobin (1.5 - 5.0 %) 1.2 L O2 Concentration % 2.5L Temperature (97.0 - 100.0 FARH) 98.6 O2 Delivery Method NC Chemistry Hemoglobin A1c (<5.7) 6.8 H Miscellaneous Phlebotomy Draw Site RIGHT RADIAL Microbiology Date/Time Procedure - Status Source Growth 07/10 231 Surveillance Culture - COMP UPPER RESP 07/10 231 Surveillance Culture - COMP GI 07/09 2228 Urine Culture - CAN URINE ROUT Cancelled: DUPLICATE ORDER 07/09 2146 Respiratory Culture - CAN LOWER RESP Cancelled: SPECIMEN NOT RECEIVED IN LABORATORY 07/09 2146 Gram Stain - CAN LOWER RESP Cancelled: SPECIMEN NOT RECEIVED IN LABORATORY 07/09 2100 Legionella Antigen - COMP URINE ROUT 07/09 2100 Streptococcus pneumoniae Antigen (M - COMP URINE ROUT 07/09 2100 Urine Culture - RES URINE ROUT 07/09 2039 Blood Culture - RES BLOOD 07/09 2038 Blood Culture - RES BLOOD Impression/Plan Impression/Plan Impression/Plan: Physical Exam General Appearance Alert, oriented x2, in mild respiratory distress on BiPAP HEENT Atraumatic, PERRLA, EOMI, dry mucous membranes Neck Supple, No JVD, +2 Carotid Pulse wo Bruit, No LAD Cardiovascular Regular Rate, Normal S1, Normal S2, No Murmurs Lungs B/l decreased breath sounds Abdomen Normal Bowel Sounds, Soft, No Tenderness Neurological Normal Speech Extremities RLE more swollen compared to LLE. B/l edema in LEs. Vascular Normal Pulses, Pulses Symmetrical IMPRESSION This is a morbidly obese lady with history of chronic lung disease who has probably mild COPD with significant restrictive pulmonary disease due to morbid obesity with no emphysema noted in the CAT scan has a following issues * Acute on chronic hypercarbic insufficiency and failure probably related to untreated sleep apnea probably obstructive versus central sleep apnea and pt has refused long-term cpap or bipap, no evidence suggestive of severe COPD exacerbation, may have had mild bronchitis with mild ACOPDE * Significant pulmonary hypertension with PA pressures more than 55 most likely related to her untreated obstructive sleep apnea versus central apnea. PT has had remote history of dvt and was on warfarin for more than a yr, and no recent dvt and previous pe work up neg so far and pt was prob not on warfarin lately * Morbid obesity playing a role * Significant restrictive lung disease as well due to her body habitus * Chronic lower ext edema * CKD with MARY KATE better, due to HTN etc * Elevated sugar with glucose intol * Chronic microcytic anemia needs gi work up and pt not too keen now * Chronic hyponatremia * Hyperlipedemia * Sig anxiety and peripheral neuropathy on buspar and gabapentin * Chronic tremor in the rt hand with previous neuro eval * Previous history of sig tobacco use Recommendation COnt bipap as seth and daily at hs for now prednisone 20 qd for three more days Theophylline 200 at hs Resume low dose lasix po daily except friday and friday Resume diamox 250 po qd instead of lasix on friday and friday COnt inhalers as she was on before Start buspar tommorow WHen stable will get a vq scan to rule out chronic vte in a day or two Cont heparin sq Pt counselled about bipap use and she understands Needs nocturnal oxymetry when off bipap to see if she qualifies for bipap for chronic resp failure Call Dr Galvez office and get her sleep study report (her previous pulm MD) Ok to the floor
[2016-07-11 23:35] VITALS: BP 90/50
[2016-07-12 02:30] VITALS: BP 92/58
[2016-07-12 06:31] VITALS: BP 102/58
--- NOTE | 2016-07-12 07:28 | PN- Housestaff ---
Assessment/Plan Consulting Request: Consulting Specialty: Critical Care
[2016-07-12 08:01] LABS: ABSOLUTE BASOPHIL COUNT 0 /CUMM (0.0-0.2); ABSOLUTE EOSINOPHIL COUNT 0 /CUMM (0.0-0.7); ABSOLUTE GRANULOCYTE CT 3.9 /CUMM (1.4-6.5); ABSOLUTE MONOCYTE COUNT 0.4 /CUMM (0.10-0.60); BASOPHIL % 0.1 % (0.0-2.0); EOSINOPHIL % 0.1 % (0-5); GRANULOCYTE % 73.7 % (42.2-75.2); HEMATOCRIT 27.9 % (37-47); MEAN CORPUSCULAR HGB 20.3 PG (27.0-31.0); MEAN CORPUSCULAR HGB CONC 29.9 G/DL (33.0-37.0); MEAN PLATELET VOLUME 7.5 FL (7.4-10.4); PLATELET COUNT 149 /CUMM (130-400); WHITE BLOOD CELL COUNT 5.2 /CUMM (4.8-10.8)
--- NOTE | 2016-07-12 08:47 | PN- Housestaff ---
Subjective Follow-up For: Acute hypoxic/hypercarbic respiratory failure Subjective: Patient seen and examined this morning. She was lying in bed in no acute distress. She reports that she has been using BiPAP overnight but she reports being significantly uncomfortable with it, will monitor pulse ox at night. Remains afebrile, white count stable. Otherwise no significant disease. UA catheter to be discontinued today. Review of Systems Constitutional: Denies: chills, fever. Cardiovascular: Denies: chest pain, palpitations. Respiratory: Reports: cough, short of breath, sputum production. Gastrointestinal: Denies: abdominal pain, diarrhea, distention, nausea, vomiting. Genitourinary: Denies: dysuria, frequency. Objective Last 24 Hrs of Vital Signs/I&O Vital Signs Date Time Temp Pulse Resp B/P Pulse O2 O2 Flow FiO2 Ox Delivery Rate 07/12 1409 97.6 66 20 118/70 100 Nasal 2.0L Cannula 07/12 0804 95 Nasal 2.0L Cannula 07/12 0631 98.1 59 20 102/58 96 Nasal 2.0L Cannula 07/12 0323 61 95 07/12 0230 92/58 07/12 0101 68 96 07/12 0000 96 BIPAP 07/11 2335 98.6 80 20 90/50 93 Nasal 2.0L Cannula 07/11 2054 91 Nasal 1.0L Cannula Intake & Output 07/12 1600 07/12 0800 07/12 0000 Intake Total 1090 360 720 Output Total 2000 300 1050 Balance -910 60 -330 Intake, IV 250 Intake, Oral 840 360 720 Number 1 Bowel Movements Output, Urine 2000 300 1050 Physical Exam General Appearance: Alert, Oriented X3, Cooperative, No Acute Distress Cardiovascular: Regular Rate, Normal S1, Normal S2, No Murmurs Lungs: Clear to Auscultation, Normal Air Movement Abdomen: Normal Bowel Sounds, Soft, No Tenderness Extremities: No Clubbing, No Cyanosis Current Medications: Current Medications Sig/Yamileth Start time Last Medication Dose Route Stop Time Status Admin Acetaminophen 650 MG .STK-MED ONE 07/11 2101 DC PO 07/11 2102 Acetaminophen 650 MG Q6PRN PRN 07/09 2245 AC 07/11 PO 210 Acetazolamide 250 MG MoFr 07/12 1500 AC PO Albuterol Sulfate 3 ML BID 07/10 2200 AC 07/12 INH 0802 Atorvastatin Calcium 80 MG 1700 07/10 1700 AC 07/11 PO 1646 Azithromycin 500 MG DAILY 07/10 1000 DC 07/12 Dextrose/Water 250 ML IV 1001 Budesonide/ 2 PUF BID 07/10 1000 AC 07/12 Formoterol Fumarate INH 0958 Buspirone HCl 5 MG BID 07/10 2200 AC 07/12 PO 0958 Furosemide 20 MG [id number] 07/13 1500 AC PO Furosemide 20 MG TUES WED THUR 07/12 1455 CAN PO Furosemide 20 MG DAILY 07/12 1000 DC 07/12 PO 0957 Furosemide 20 MG DAILY 07/11 1435 DC PO Furosemide 40 MG DAILY 07/10 1452 DC 07/12 PO 0956 Gabapentin 100 MG BID 07/10 1000 AC 07/12 PO 0957 Heparin Sodium 5,000 UNIT Q8 07/10 0600 DC 07/12 (Porcine) SC 07/12 1600 1304 Montelukast Sodium 10 MG 1700 07/10 1700 AC 07/11 PO 1647 Pantoprazole Sodium 40 MG DAILY 07/12 1000 AC 07/12 IV 1000 Pantoprazole Sodium 40 MG DAILY 07/10 1000 DC 07/11 IV 1019 Patient Medication 1 ED .STK-MED ONE 07/12 1400 DC Teaching ED 07/12 1401 Prednisone 20 MG DAILY 07/11 1000 AC 07/12 PO 07/14 1001 0957 Senna/Docusate Sodium 2 TAB AT BEDTIME 07/10 2200 AC PO Theophylline 200 MG QPM 07/10 2200 AC 07/11 PO 2325 Assessment/Plan Assessment: 76-year-old female with a past medical history of COPD on 3.0 liters of O2 at home, ex-smoker, hypertension, hyperlipidemia, arthritis, fracture of the ankle with swollen right lower extremity, baseline bilateral edema, pulmonary hypertension with sleep apnea noncompliant with BiPAP, chronic hypercarbia related to ADITYA and central sleep apnea presented to the ED with increased lethargy and confusion. 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 Multiple readmissions for similar complaints over the past 2 years. She has been notoriously noncompliant with medications, supplemental oxygen, and CPAP at night. -Continue Albuterol/Symbicort -Watching off of antibiotics -Prednisone 20mg PO daily for 2 more days (still 07/14/16) stop -Lasix 20 mg daily except Friday and Friday when she is to get Diamox 250 mg by mouth. -Theophylline 200mg PO QHS -Montelukast 10mg PO daily -Pulmonology following History of hyperlipidemia: We'll continue home dose of atorvastatin 80 mg by mouth daily. History of anxiety: We'll continue home dose of -Buspar 5mg PO BID Diet - Regular Diet DVT PPx - Heparin SC Code status - FULL CODE Problem List: 1. Acute hypercapnic respiratory failure 2. Asthma exacerbation 3. COPD exacerbation Pain Ratin Pain Location: none Pain Goal: Remain pain free Pain Plan: mild pp neurontin 100mg BID Tomorrow's Labs & Rationales: none Consulting Request: Consulting Specialty: Critical Care
--- NOTE | 2016-07-12 10:57 | PN- Pulmonary ---
Subjective HPI/Critical Care Issues: Much improved Awake used the bipap last night Stable Objective Current Medications: Current Medications Sig/Yamileth Start time Last Medication Dose Route Stop Time Status Admin Acetaminophen 650 MG .STK-MED ONE 07/11 210 DC PO 07/11 210 Acetaminophen 650 MG Q6PRN PRN 07/09 2245 AC 07/11 PO 2108 Albuterol Sulfate 3 ML BID 07/10 2200 AC 07/12 INH 0802 Atorvastatin Calcium 80 MG 1700 07/10 1700 AC 07/11 PO 1646 Azithromycin 500 MG DAILY 07/10 1000 AC 07/12 Dextrose/Water 250 ML IV 1001 Budesonide/ 2 PUF BID 07/10 1000 AC 07/12 Formoterol Fumarate INH 0958 Buspirone HCl 5 MG BID 07/10 2200 AC 07/12 PO 0958 Furosemide 20 MG DAILY 07/12 1000 AC 07/12 PO 0957 Furosemide 20 MG DAILY 07/11 1435 DC PO Furosemide 40 MG DAILY 07/10 1452 AC 07/12 PO 0956 Gabapentin 100 MG BID 07/10 1000 AC 07/12 PO 0957 Heparin Sodium 5,000 UNIT Q8 07/10 0600 AC 07/12 (Porcine) SC 0525 Montelukast Sodium 10 MG 1700 07/10 1700 AC 07/11 PO 1647 Pantoprazole Sodium 40 MG DAILY 07/12 1000 AC 07/12 IV 1000 Pantoprazole Sodium 40 MG DAILY 07/10 1000 DC 07/11 IV 1019 Prednisone 20 MG DAILY 07/11 1000 AC 07/12 PO 07/14 1001 0957 Senna/Docusate Sodium 2 TAB AT BEDTIME 07/10 2199 AC PO Theophylline 200 MG QPM 07/10 220 AC 07/11 PO 2325 Vital Signs & I&O Last 24 Hrs of Vitals and I&O: Vital Signs Date Time Temp Pulse Resp B/P Pulse O2 O2 Flow FiO2 Ox Delivery Rate 07/12 0804 95 Nasal 2.0L Cannula 07/12 0631 98.1 59 20 102/58 96 Nasal 2.0L Cannula 07/12 0323 61 95 07/12 0230 92/58 07/12 0101 68 96 07/12 0000 96 BIPAP 07/11 2335 98.6 80 20 90/50 93 Nasal 2.0L Cannula 07/11 2054 91 Nasal 1.0L Cannula 07/11 1600 93 Nasal 1.0L Cannula 07/11 1220 73 96 Intake & Output 07/12 1600 07/12 0800 07/12 0000 Intake Total 360 360 720 Output Total 300 1050 Balance 360 60 -330 Intake, Oral 360 360 720 Number 1 Bowel Movements Output, Urine 300 1050 Impression/Plan Impression/Plan Impression/Plan: Physical Exam General Appearance Alert, oriented x2, in mild respiratory distress on BiPAP HEENT Atraumatic, PERRLA, EOMI, dry mucous membranes Neck Supple, No JVD, +2 Carotid Pulse wo Bruit, No LAD Cardiovascular Regular Rate, Normal S1, Normal S2, No Murmurs Lungs B/l decreased breath sounds Abdomen Normal Bowel Sounds, Soft, No Tenderness Neurological Normal Speech Extremities RLE more swollen compared to LLE. B/l edema in LEs. Vascular Normal Pulses, Pulses Symmetrical IMPRESSION This is a morbidly obese lady with history of chronic lung disease who has probably mild COPD with significant restrictive pulmonary disease due to morbid obesity with no emphysema noted in the CAT scan has a following issues * REsolving Acute on chronic hypercarbic insufficiency and failure probably related to untreated sleep apnea probably obstructive versus central sleep apnea and pt has refused terminal system operator cpap or bipap, no evidence suggestive of severe COPD exacerbation, may have had mild bronchitis with mild ACOPDE * Significant pulmonary hypertension with PA pressures more than 55 most likely related to her untreated obstructive sleep apnea versus central apnea. PT has had remote history of dvt and was on warfarin for more than a yr, and no recent dvt and previous pe work up neg so far and pt was prob not on warfarin lately * Morbid obesity playing a role * Significant restrictive lung disease as well due to her body habitus * Chronic lower ext edema * CKD with MARY KATE better, due to HTN etc * Elevated sugar with glucose intol * Chronic microcytic anemia needs gi work up and pt not too keen now * Chronic hyponatremia * Hyperlipedemia * Sig anxiety and peripheral neuropathy on buspar and gabapentin * Chronic tremor in the rt hand with previous neuro eval * Previous history of sig tobacco use Recommendation Try without bipap tonight and ask resp to do nocturnal oxymetry on room air if seth or with oxygen to see if she qualifys for the bipap at home for resp failure prednisone 20 qd for two more days Theophylline 200 at hs Resume low dose lasix po daily except friday and friday Resume diamox 250 po qd instead of lasix on friday and friday DC abx Dc wild COnt inhalers as she was on before VQ scan if seth today Cont heparin sq
[2016-07-12 14:09] VITALS: BP 118/70
--- NOTE | 2016-07-12 15:00 | NUCLEAR MEDICINE REPORT ---
EXAMINATION: NM LUNG SCAN V/Q CLINICAL INFORMATION: Respiratory failure and pulmonary hypertension. COMPARISON: Chest x-ray dated 07/11/2016. TECHNIQUE: Perfusion images following intravenous administration of 4.76 mCi technetium 99m MAA. Images obtained in multiple projections. Ventilation images utilizing 18.5 mCi xenon-133. First breath, equilibrium and washout images obtained in posterior projection. FINDINGS: No evidence of a segmental or large subsegmental perfusion defect. Mildly decreased perfusion in the right apical region appears worse on the ventilation images. This is likely secondary to attenuation from adjacent right superior mediastinal structures. Ventilation images demonstrate mild air trapping with subtle retention of the radiotracer seen in the lower lungs. IMPRESSION: VQ scan findings are compatible with low probability for pulmonary embolism.
--- NOTE | 2016-07-12 16:44 | PN- Att Addend ---
Attending MD Review Statement Attending Statement Attending MD Statement: examined this patient, discuss w/resident/PA/BENEFITS ANALYST, agreed w/resident/PA/BENEFITS ANALYST, reviewed EMR data (avail), discussed w/nursing, discussed w/ case mgmt Attending Assessment/Plan: Patient seen and examined at bedside with the team. VQ scan ordered to rule out chronic thromboembolism and came out as low probability. We will get overnight pulse oximetry tonight without BiPAP and possibly on room air and will repeat an ABG in the morning. Based on the results we will see if the patient will qualify for BiPAP at home. Patient was told that she has pulmonary hypertension likely secondary to sleep apnea and she will benefit from using BiPAP religiously at home. Patient wanted to be discharged home today, I spoke with the patient in detail about the need of these tests and she is willing to stay tonight and based on the results we will decide if she can be discharged home tomorrow. I strongly believe that the patient will benefit from BiPAP at home both for her sleep apnea as well as pulmonary hypertension.
[2016-07-12 22:56] VITALS: BP 102/60
[2016-07-13 06:23] VITALS: BP 114/70
--- NOTE | 2016-07-13 08:28 | PN- Housestaff ---
Subjective Follow-up For: Acute hypoxic/hypercarbic respiratory failure Subjective: Patient seen and examined this morning. She was lying in bed in no acute distress. Patient repeatedly says she wants to go home today and woud like to talk to the attending physician. She is otherwise resting comfortably in bed with no complaints. Denies shortness of breath. Satting well on 1L oxygen. Her sats were above 92% off BiPAP overnight but ABG this morning shows worsening hypercarbia. Review of Systems Constitutional: Reports: see HPI. Objective Last 24 Hrs of Vital Signs/I&O Vital Signs Date Time Temp Pulse Resp B/P Pulse O2 O2 Flow FiO2 Ox Delivery Rate 07/13 0623 98.4 60 20 114/70 96 Nasal Cannula 07/13 0000 Nasal 1.5L Cannula 07/12 2356 95 Nasal 2.0L Cannula 07/12 2256 98.0 69 20 102/60 97 Nasal Cannula 07/12 1927 Nasal 3.0L Cannula 07/12 1600 Nasal 1.0L Cannula 07/12 1409 97.6 66 20 118/70 100 Nasal 2.0L Cannula Intake & Output 07/13 1600 07/13 0800 07/13 0000 Intake Total 120 Output Total Balance 120 Intake, Oral 120 Number 0 Bowel Movements Physical Exam General Appearance: Alert, Oriented X3, Cooperative, No Acute Distress Other Physical Findings: Cardiovascular: Regular Rate, Normal S1, Normal S2, No Murmurs Lungs: Clear to Auscultation, Normal Air Movement Abdomen: Normal Bowel Sounds, Soft, No Tenderness Extremities: No Clubbing, No Cyanosis Current Medications: Current Medications Sig/Yamileth Start time Last Medication Dose Route Stop Time Status Admin Acetaminophen 650 MG Q6PRN PRN 07/09 2245 AC 07/11 PO 2108 Acetazolamide 250 MG MoFr 07/12 1500 AC PO Albuterol Sulfate 3 ML BID 07/10 2200 AC 07/12 INH 1649 Atorvastatin Calcium 80 MG 1700 07/10 1700 AC 07/12 PO 1723 Azithromycin 500 MG DAILY 07/10 1000 DC 07/12 Dextrose/Water 250 ML IV 1001 Budesonide/ 2 PUF BID 07/10 1000 AC 07/12 Formoterol Fumarate INH 2156 Buspirone HCl 5 MG BID 07/10 2200 AC 07/12 PO 2155 Furosemide 20 MG SuTuWeThSa 07/13 1500 AC PO Furosemide 20 MG 07/12 1455 CAN PO Furosemide 20 MG DAILY 07/12 1000 DC 07/12 PO 0957 Furosemide 40 MG DAILY 07/10 1452 DC 07/12 PO 0956 Gabapentin 100 MG BID 07/10 1000 AC 07/12 PO 2155 Heparin Sodium 5,000 UNIT Q8 07/10 0600 DC 07/12 (Porcine) SC 07/12 1600 1304 Montelukast Sodium 10 MG 1700 07/10 1700 AC 07/12 PO 1723 Pantoprazole Sodium 40 MG DAILY 07/12 1000 AC 07/12 IV 1000 Patient Medication 1 ED .STK-MED ONE 07/12 1400 DC Teaching ED 07/12 1401 Prednisone 20 MG DAILY 07/11 1000 AC 07/12 PO 07/14 1001 0957 Senna/Docusate Sodium 2 TAB AT BEDTIME 07/10 2200 AC 07/12 PO 2155 Theophylline 200 MG QPM 07/10 2200 AC 07/12 PO 2155 Last 24 Hrs of Lab/Luigi Results Last 24 Hrs of Labs/Mics: Laboratory Tests 07/13/16 0800: pH Pending, pCO2 Pending, pO2 Pending, HCO3 Pending, ABG O2 Sat (Measured) Pending, P-50 (Temp Corrected) Pending, Carboxyhemoglobin Pending, O2 Concentration % Pending, Temperature Pending, O2 Delivery Method Pending, Phlebotomy Draw Site Pending Assessment/Plan Assessment: 76-year-old female with a past medical history of COPD on 3.0 liters of O2 at home, ex-smoker, hypertension, hyperlipidemia, arthritis, fracture of the ankle with swollen right lower extremity, baseline bilateral edema, pulmonary hypertension with sleep apnea noncompliant with BiPAP, chronic hypercarbia related to ADITYA and central sleep apnea presented to the ED with increased lethargy and confusion. 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 Multiple readmissions for similar complaints over the past 2 years. She has been notoriously noncompliant with medications, supplemental oxygen, and CPAP at night. -Continue Albuterol/Symbicort -Watching off of antibiotics -Prednisone 20mg PO daily until tomorrow and then stop. -Lasix 20 mg daily except Friday and Friday when she is to get Diamox 250 mg by mouth. -Theophylline 200mg PO QHS -Montelukast 10mg PO daily -Pulmonology following -Watch off BiPAP for one more night today -Obtain oximetery recordings from the RT (requested and awaiting on the answer) -Repeat ABG in the morning -Patient will require BiPAP for use at home History of hyperlipidemia: We'll continue home dose of atorvastatin 80 mg by mouth daily. History of anxiety: We'll continue home dose of -Buspar 5mg PO BID Diet - Regular Diet DVT PPx - Heparin SC Code status - FULL CODE Problem List: 1. Acute hypercapnic respiratory failure 2. Asthma exacerbation 3. COPD exacerbation 4. Patient is full code 5. DVT prophylaxis Pain Ratin Pain Location: 0 Pain Goal: Remain pain free Pain Plan: Mild path Tomorrow's Labs & Rationales: None Consulting Request: Consulting Specialty: Critical Care
--- NOTE | 2016-07-13 13:16 | PN- Pulmonary ---
Subjective HPI/Critical Care Issues: Patient continues to have significant daytime hypersomnolence today. She was off BiPAP last night but now unfortuntely appears to be excessively fatigued and she is complaining of morning headache. She does also have significant cognitive dysfunction which shortness of breath this morning highly suggestive of absolute requirement for BiPAP. While she was on BiPAP. Shown remarkable improvement and this suggests that she has significant hypoventilation-induced chronic respiratory failure with hypercarbia. She has had a sleep study done before on 12/17/2013. The sleep study did reveal that patient has very severe hypoventilation syndrome. Her apnea hypotony index was 2.1. However it did show that patient's mean arterial oxygen saturation was 85% with 12.6% of the study was spent with a saturation in the 9200% range, 87% of study was spent with a saturation below 90% and the lowest saturation was 79% . Patient spent most of her time at oxygen saturation around 88 or less signifying severe bedtime hypoxemia. Patient spent 122 minutes with oxygen saturation less than 88% before. Her outpatient spirometry was reviewed. Her FEV1 over FVC ratio was more than 70% and her FEV1 was more than 50% of predicted signifying that she does not have any severe COPD. ABG reviewed and shows that the baseline PCO2 does rise by more than 7. pH is 7.37/PCO2 of 64 immediately upon awakening without BiPAP, versus baseline PCO2 of 52 during the day. Her baseline ABG is 7.39/52/122. Signifying more than 12 mmHg compared to the original PCO2 which is more than 7 required for BiPAP criteria. Due to the above-mentioned data patient does absolutely qualify for bedtime BiPAP. Objective Current Medications: Current Medications Sig/Yamileth Start time Last Medication Dose Route Stop Time Status Admin Acetaminophen 500 MG Q6P PRN 07/13 1215 AC PO Acetaminophen 650 MG Q6PRN PRN 07/09 2245 DC 07/11 PO 2108 Acetazolamide 250 MG MoFr 07/12 1500 AC PO Albuterol Sulfate 3 ML BID 07/10 2200 AC 07/13 INH 0915 Atorvastatin Calcium 80 MG 1700 07/10 1700 AC 07/12 PO 1723 Azithromycin 500 MG DAILY 07/10 1000 DC 07/12 Dextrose/Water 250 ML IV 1001 Budesonide/ 2 PUF BID 07/10 1000 AC 01/14 Formoterol Fumarate INH 1049 Buspirone HCl 5 MG BID 07/10 2200 AC 07/13 PO 1048 Furosemide 20 MG SuTuWeThSa 07/13 1500 AC 07/13 PO 1056 Furosemide 20 MG TUES WED THUR 07/12 1455 CAN PO Furosemide 20 MG DAILY 07/12 1000 DC 07/12 PO 0957 Furosemide 40 MG DAILY 07/10 1452 DC 07/12 PO 0956 Gabapentin 100 MG BID 07/10 1000 AC 07/13 PO 1049 Heparin Sodium 5,000 UNIT Q8 07/10 0600 DC 07/12 (Porcine) SC 07/12 1600 1304 Montelukast Sodium 10 MG 1700 07/10 1700 AC 07/12 PO 1723 Pantoprazole Sodium 40 MG DAILY 07/12 1000 AC 07/13 IV 1049 Patient Medication 1 ED .STK-MED ONE 07/12 1400 DC Teaching ED 07/12 1401 Prednisone 20 MG DAILY 07/11 1000 AC 07/13 PO 07/14 1001 1048 Senna/Docusate Sodium 2 TAB AT BEDTIME 07/10 2200 AC 07/12 PO 2155 Theophylline 200 MG QPM 07/10 2200 AC 07/12 PO 2155 Vital Signs & I&O Last 24 Hrs of Vitals and I&O: Vital Signs Date Time Temp Pulse Resp B/P Pulse O2 O2 Flow FiO2 Ox Delivery Rate 07/13 0928 93 Nasal 1.0L Cannula 07/13 0623 98.4 60 20 114/70 96 Nasal Cannula 07/13 0000 Nasal 1.5L Cannula 07/12 2356 95 Nasal 2.0L Cannula 07/12 2256 98.0 69 20 102/60 97 Nasal Cannula 07/12 1927 Nasal 3.0L Cannula 07/12 1600 Nasal 1.0L Cannula 07/12 1409 97.6 66 20 118/70 100 Nasal 2.0L Cannula Intake & Output 07/13 1600 07/13 0800 07/13 0000 Intake Total 120 Output Total Balance 120 Intake, Oral 120 Number 0 Bowel Movements Impression/Plan Impression/Plan Impression/Plan: ABG 7.37/pco2 64/92 pao2 on 2 litres today without bipap upon awakening ABG Baseline 7.39/52pco2/122oxygen/ on 07/11/16 baseline Physical Exam General Appearance Alert, oriented x2, in mild respiratory distress on BiPAP HEENT Atraumatic, PERRLA, EOMI, dry mucous membranes Neck Supple, No JVD, +2 Carotid Pulse wo Bruit, No LAD Cardiovascular Regular Rate, Normal S1, Normal S2, No Murmurs Lungs B/l decreased breath sounds Abdomen Normal Bowel Sounds, Soft, No Tenderness Neurological Normal Speech Extremities RLE more swollen compared to LLE. B/l edema in LEs. Vascular Normal Pulses, Pulses Symmetrical IMPRESSION This is a morbidly obese lady with history of chronic lung disease who has probably mild COPD with significant restrictive pulmonary disease due to morbid obesity with no emphysema noted in the CAT scan has a following issues * REsolving Acute on chronic hypercarbic insufficiency and failure related to untreated severe obesity hypoventilation syndrome with sig bedtime hypoxia with pickwikian syndrome consistant with sig hypoventilation syndrome * REpeat nocturnal oxymetry did reveal sig bedtime hypoxia with sao2 less than 88 percent even while on oxygen for more than 10 mins * No sig copd from her previous spirometry, and pt does get bacterial bronchitis * Significant pulmonary hypertension with PA pressures more than 55 most likely related to her untreated hypventilation syndrome. VQ scan is neg and pt does not have chronic pe * Morbid obesity * Restrictive lung disease as well due to her body habitus * Chronic lower ext edema * CKD with MARY KATE better, due to HTN etc * Elevated sugar with glucose intol * Chronic microcytic anemia needs gi work up and pt not too keen now * Chronic hyponatremia * Hyperlipedemia * Sig anxiety and peripheral neuropathy on buspar and gabapentin * Chronic tremor in the rt hand with previous neuro eval * Previous history of sig tobacco use Recommendation Needs bipap at night see note below prednisone 20 qd for one more day Theophylline 200 at hs Resume low dose lasix po daily except friday and friday Resume diamox 250 po qd instead of lasix on friday and friday COnt inhalers as she was on before BiPAP rx INDICATION: HYPOVENTILATION SYNDROME (PICKWICKIAN SYNDROME) SYMPTOMS AND SIGNS: Significant sleep associated hypoventilation with daytime hypersomnolence, excessive fatigue, morning headache and cognitive dysfunction with memory dysfunction with significant dyspnea during the day while the patient was off BiPAP REQUIRED DOCUMENTATION * Patient had a facility based sleep study. He did not show obstructive sleep apnea it showed significant bedtime hypoxemia suggestive of hypoventilation syndrome with more than 122 minutes spent with oxygen saturation of less than 88 %. This hypoxia was not caused by obstructive sleep apnea. The apnea hypoxia index was 2.1 and they were central apneas signifying moderate obesity hypoventilation syndrome with severe bedtime hypoxemia * Spirometry showed FEV1/FVC more than 70% before with FEV1 of more than 50% of predicted hence patient does not have severe COPD * Arterial blood gas while patient immediately upon awakening showed PCO2 of 64 and the patient's baseline PCO2 is 52 showing that there is more than 7 mmHg worsening signifying significant hypoxemia * Patient has had significant improvement with the use of BiPAP while she was in the hospital with the setting of 18/6 WITH 30 PERCENT FIO2 OR 3 LITRE BLEED IN, WITH BACK UP RATE OF 20) Needs BIpap 18/6 fio2 30 percent or 3 litres of oxygen bleed in Back up rate 20
--- NOTE | 2016-07-13 15:19 | PN- Att Addend ---
Attending MD Review Statement Attending Statement Attending MD Statement: examined this patient, discuss w/resident/PA/CONCRETE SPREADER, agreed w/resident/PA/CONCRETE SPREADER, reviewed EMR data (avail), discussed w/nursing Attending Assessment/Plan: Patient seen and examined with the resident and agree with their note. Discussed with jetting machine operator the care plan. Patient has significant obesity hypoventilation syndrome and the resulting hypercarbia. Repeat ABG done this morning shows PCO2 that went up to 64. We will review the overnight pulse oximetry that was done. We'll repeat another ABG in a.m. Next Plan is to arrange for BiPAP for the patient to go home with. Explained to the patient the importance of using BiPAP at home and being compliant with it. Patient understands and is agreeable with the plan. Acute on chronic hypercapnic respiratory failure with hypoxia and hypercapnia. Management as above.
[2016-07-13 15:26] VITALS: BP 120/80
[2016-07-13 22:25] VITALS: BP 120/60
[2016-07-14 01:19] VITALS: BP 112/66
--- NOTE | 2016-07-14 05:59 | PN- Housestaff ---
SUNITHA CRUZ,ABRAHAM 07/14/16 0558: Subjective Follow-up For: Acute hypoxic/hypercarbic respiratory failure Subjective: Patient seen and examined this morning. She was lying in bed in no acute distress. Patient expresses strong wish to go home today. She is otherwise resting comfortably in bed getting the breathing treatment. Patient was on BiPAP for 2-3 hours. It was removed around 2am because patient complained she can't sleep with it on. This morning she is satting well at 94% on 1L oxygen. Review of Systems Constitutional: Reports: see HPI. Objective Last 24 Hrs of Vital Signs/I&O Vital Signs Date Time Temp Pulse Resp B/P Pulse O2 O2 Flow FiO2 Ox Delivery Rate 07/14 0634 98.6 57 21 108/66 94 Nasal 1.0L Cannula 07/14 0119 58 20 112/66 95 BIPAP 07/14 0057 69 98 07/14 0000 BIPAP 07/13 2314 61 98 07/13 2225 98.0 72 22 120/60 94 Nasal Cannula 07/13 2004 94 Nasal 1.0L Cannula 07/13 1526 98.2 65 22 120/80 92 07/13 0928 93 Nasal 1.0L Cannula Intake & Output 07/14 1600 07/14 0800 07/14 0000 Intake Total 120 Output Total 900 500 Balance -900 -380 Intake, Oral 120 Number 0 Bowel Movements Output, Urine 900 500 Physical Exam General Appearance: Alert, Oriented X3, Cooperative, No Acute Distress Other Physical Findings: Cardiovascular: Regular Rate, Normal S1, Normal S2, No Murmurs Lungs: Clear to Auscultation, Normal Air Movement Abdomen: Normal Bowel Sounds, Soft, No Tenderness Extremities: No Clubbing, No Cyanosis Current Medications: Current Medications Sig/Yamileth Start time Last Medication Dose Route Stop Time Status Admin Acetaminophen 500 MG Q6P PRN 07/13 1215 DC PO Acetaminophen 650 MG Q6PRN PRN 07/09 2245 DC 07/11 PO 2108 Acetazolamide 250 MG MoFr 07/12 1500 AC PO Albuterol Sulfate 3 ML BID 07/10 2200 AC 07/13 INH 2005 Atorvastatin Calcium 80 MG 1700 07/10 1700 AC 07/13 PO 1702 Budesonide/ 2 PUF BID 07/10 1000 AC 07/13 Formoterol Fumarate INH 2042 Buspirone HCl 5 MG BID 07/10 2200 AC 07/13 PO 204 Furosemide 20 MG SuTuWeThSa 07/13 1500 AC 07/13 PO 1056 Gabapentin 100 MG BID 07/10 1000 AC 07/13 PO 204 Montelukast Sodium 10 MG 1700 07/10 1700 AC 07/13 PO 1702 Pantoprazole Sodium 40 MG DAILY 07/12 1000 AC 07/13 IV 1049 Prednisone 20 MG DAILY 07/11 1000 AC 07/13 PO 07/14 1001 1048 Senna/Docusate Sodium 2 TAB AT BEDTIME 07/100 AC 07/13 PO 204 Theophylline 200 MG QPM 07/10 2199 AC 07/13 PO 2041 Last 24 Hrs of Lab/Luigi Results Last 24 Hrs of Labs/Mics: Laboratory Tests 07/14/16 0640: Sodium Pending, Potassium Pending, Chloride Pending, Carbon Dioxide Pending, Anion Gap Pending, BUN Pending, Creatinine Pending, BUN/Creatinine Ratio Pending , CBC w Diff Pending, WBC Pending, RBC Pending, Hgb Pending, Hct Pending, MCV Pending, MCH Pending, RDW Pending, Plt Count Pending, MPV Pending, PUBS MCHC Pending Assessment/Plan Assessment: 76-year-old female with a past medical history of COPD on 3.0 liters of O2 at home, ex-smoker, hypertension, hyperlipidemia, arthritis, fracture of the ankle with swollen right lower extremity, baseline bilateral edema, pulmonary hypertension with sleep apnea noncompliant with BiPAP, chronic hypercarbia related to ADITYA and central sleep apnea presented to the ED with increased lethargy and confusion. 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 Multiple readmissions for similar complaints over the past 2 years. She has been notoriously noncompliant with medications, supplemental oxygen, and CPAP at night. -Continue Albuterol/Symbicort -Watching off of antibiotics -Discontinue after patient gets her last dose of Prednisone 20mg today -Lasix 20 mg daily except Friday and Friday when she is to get Diamox 250 mg by mouth. -Theophylline 200mg PO QHS -Montelukast 10mg PO daily -Pulmonology following -Obtain oximetery recordings from the RT (requested and awaiting on the answer) -Follow repeat ABG in the morning -Patient will require BiPAP for use at home History of hyperlipidemia: Continue home dose of atorvastatin 80 mg by mouth daily. History of anxiety: Continue home dose of -Buspar 5mg PO BID Diet - Regular Diet DVT PPx - Heparin SC Code status - FULL CODE Problem List: 1. Hypercarbia 2. Asthma exacerbation 3. COPD exacerbation 4. Acute hypercapnic respiratory failure 5. Leg edema 6. DVT prophylaxis 7. Patient is full code Pain Ratin Pain Location: BLEs Pain Goal: Remain pain free Pain Plan: Mild pathway Tomorrow's Labs & Rationales: BEP ABG Consulting Request: Consulting Specialty: Critical Care FRANKLYN MOSS 07/19/16 1252: Attending MD Review Statement Attending Statement Attending MD Statement: examined this patient, discuss w/resident/PA/LINUX ADMINISTRATOR, agreed w/resident/PA/LINUX ADMINISTRATOR, reviewed EMR data (avail), discussed with nursing, discussed with case mgmt Attending Assessment/Plan: Patient seen and examined with the resident and agree with their note. Discussed with hand paint mixer the care plan. Patient has significant obesity hypoventilation syndrome and the resulting hypercarbia. ABG done on friday morning showed PCO2 that went up to 64. Plan is to arrange for BiPAP for the patient to go home with. Explained to the patient the importance of using BiPAP at home and being compliant with it. Patient understands and is agreeable with the plan. Case management workign on arranging BIPAP for home. Acute on chronic hypercapnic respiratory failure with hypoxia and hypercapnia. Management as above.
[2016-07-14 06:34] VITALS: BP 108/66
[2016-07-14 08:49] LABS: ABSOLUTE BASOPHIL COUNT 0 /CUMM (0.0-0.2); ABSOLUTE EOSINOPHIL COUNT 0 /CUMM (0.0-0.7); ABSOLUTE GRANULOCYTE CT 3.4 /CUMM (1.4-6.5); ABSOLUTE LYMPH COUNT 1.3 /CUMM (1.2-3.4); ABSOLUTE MONOCYTE COUNT 0.3 /CUMM (0.10-0.60); BASOPHIL % 0.5 % (0.0-2.0); EOSINOPHIL % 0.3 % (0-5); HEMATOCRIT 29.5 % (37-47); MEAN CORPUSCULAR HGB 20.3 PG (27.0-31.0); MEAN CORPUSCULAR HGB CONC 29.6 G/DL (33.0-37.0); MEAN CORPUSCULAR VOLUME 68.6 FL (81.0-99.0); MEAN PLATELET VOLUME 7.4 FL (7.4-10.4); PLATELET COUNT 161 /CUMM (130-400); RBC DISTRIBUTION WIDTH 18.2 % (11.5-14.5)
--- NOTE | 2016-07-14 10:36 | PN- Pulmonary ---
Subjective HPI/Critical Care Issues: Doing well this morning However did not use BiPAP appropriately did come off at 4 AM. Did use only for 4 hours Patient is aware of implications of not using BiPAP and accepts all risks Strongly wishes to go home Objective Current Medications: Current Medications Sig/Yamileth Start time Last Medication Dose Route Stop Time Status Admin Acetaminophen 500 MG Q6P PRN 07/13 1215 DC PO Acetaminophen 650 MG Q6PRN PRN 07/09 2245 DC 07/11 PO 2108 Acetazolamide 250 MG MoFr 07/12 1500 AC PO Albuterol Sulfate 3 ML BID 07/10 2200 AC 07/14 INH 0826 Atorvastatin Calcium 80 MG 1700 07/10 1700 AC 07/13 PO 170 Budesonide/ 2 PUF BID 07/10 1000 AC 07/13 Formoterol Fumarate INH 204 Buspirone HCl 5 MG BID 07/10 2200 AC 07/13 PO 2042 Furosemide 20 MG SuTuWeThSa 07/13 1500 AC 07/13 PO 1056 Gabapentin 100 MG BID 07/10 1000 AC 07/13 PO 2042 Montelukast Sodium 10 MG 17007/10 1700 AC 07/13 PO 1702 Pantoprazole Sodium 40 MG DAILY 07/12 1000 AC 07/13 IV 1049 Prednisone 20 MG DAILY 07/11 1000 AC 07/13 PO 07/14 2300 1048 Senna/Docusate Sodium 2 TAB AT BEDTIME 07/10 2199 AC 07/13 PO 2042 Theophylline 200 MG QPM 07/10 220 AC 07/13 PO 2042 Laboratory Tests 07/14 07/13 07/13 0640 0800 0800 Blood Gas pH (7.35 - 7.45 PH) 7.37 Pending pCO2 (35 - 45 TORR) 64 *H Pending pO2 (80 - 100 TORR) 92 Pending HCO3 (21 - 28 MEQ/L) 36 H Pending ABG O2 Sat (Measured) (>96.0 %) 95.0 L Pending P-50 (Temp Corrected) Pending Carboxyhemoglobin (1.5 - 5.0 %) 0.7 L Pending O2 Concentration % 2L Pending Temperature Pending O2 Delivery Method NC Pending Chemistry Sodium (137 - 145 mmol/L) 139 Potassium (3.5 - 5.1 mmol/L) 4.0 Chloride (98 - 107 mmol/L) 90 L Carbon Dioxide (22 - 30 mmol/L) 38 H Anion Gap (5 - 16) 10 BUN (7 - 17 mg/dL) 24 H Creatinine (0.5 - 1.0 mg/dL) 0.9 Estimated GFR (>60 ml/min) > 60 BUN/Creatinine Ratio (7 - 25 %) 26.7 H Hematology CBC w Diff NO MAN DIFF REQ WBC (4.8 - 10.8 /CUMM) 5.0 RBC (4.20 - 5.40 /CUMM) 4.30 Hgb (12.0 - 16.0 G/DL) 8.7 L Hct (37 - 47 %) 29.5 L MCV (81.0 - 99.0 FL) 68.6 L MCH (27.0 - 31.0 PG) 20.3 L RDW (11.5 - 14.5 %) 18.2 H Plt Count (130 - 400 /CUMM) 161 MPV (7.4 - 10.4 FL) 7.4 Gran % (42.2 - 75.2 %) 68.0 Lymphocytes % (20.5 - 51.1 %) 25.4 Monocytes % (1.7 - 9.3 %) 5.8 Eosinophils % (0 - 5 %) 0.3 Basophils % (0.0 - 2.0 %) 0.5 Absolute Granulocytes (1.4 - 6.5 /CUMM) 3.4 Absolute Lymphocytes (1.2 - 3.4 /CUMM) 1.3 Absolute Monocytes (0.10 - 0.60 /CUMM) 0.3 Absolute Eosinophils (0.0 - 0.7 /CUMM) 0 Absolute Basophils (0.0 - 0.2 /CUMM) 0 PUBS MCHC (33.0 - 37.0 G/DL) 29.6 L Miscellaneous Phlebotomy Draw Site LEFT RADIAL Pending Vital Signs & I&O Last 24 Hrs of Vitals and I&O: Vital Signs Date Time Temp Pulse Resp B/P Pulse O2 O2 Flow FiO2 Ox Delivery Rate 07/14 0830 94 Nasal 1.0L Cannula 07/14 0634 98.6 57 21 108/66 94 Nasal 1.0L Cannula 07/14 0119 58 20 112/66 95 BIPAP 07/14 0057 69 98 07/14 0000 BIPAP 07/13 2314 61 98 07/13 2225 98.0 72 22 120/60 94 Nasal Cannula 07/13 2005 94 Nasal 1.0L Cannula 07/13 1526 98.2 65 22 120/80 92 Intake & Output 07/14 1600 07/14 0800 07/14 0000 Intake Total 120 Output Total 900 500 Balance -900 -380 Intake, Oral 120 Number 0 Bowel Movements Output, Urine 900 500 Impression/Plan Impression/Plan Impression/Plan: ABG 7.37/pco2 64/92 pao2 on 2 litres today without bipap upon awakening ABG Baseline 7.39/52pco2/122oxygen/ on 07/11/16 baseline Physical Exam General Appearance Alert, oriented x2, in mild respiratory distress on BiPAP HEENT Atraumatic, PERRLA, EOMI, dry mucous membranes Neck Supple, No JVD, +2 Carotid Pulse wo Bruit, No LAD Cardiovascular Regular Rate, Normal S1, Normal S2, No Murmurs Lungs B/l decreased breath sounds Abdomen Normal Bowel Sounds, Soft, No Tenderness Neurological Normal Speech Extremities RLE more swollen compared to LLE. B/l edema in LEs. Vascular Normal Pulses, Pulses Symmetrical IMPRESSION This is a morbidly obese lady with history of chronic lung disease who has probably mild COPD with significant restrictive pulmonary disease due to morbid obesity with no emphysema noted in the CAT scan has a following issues * REsolving Acute on chronic hypercarbic insufficiency and failure related to untreated severe obesity hypoventilation syndrome with sig bedtime hypoxia with pickwikian syndrome consistant with sig hypoventilation syndrome * REpeat nocturnal oxymetry did reveal sig bedtime hypoxia with sao2 less than 88 percent even while on oxygen for more than 10 mins * No sig copd from her previous spirometry, and pt does get bacterial bronchitis * Significant pulmonary hypertension with PA pressures more than 55 most likely related to her untreated hypventilation syndrome. VQ scan is neg and pt does not have chronic pe * Morbid obesity * Restrictive lung disease as well due to her body habitus * Chronic lower ext edema * CKD with MARY KATE better, due to HTN etc * Elevated sugar with glucose intol * Chronic microcytic anemia needs gi work up and pt not too keen now * Chronic hyponatremia * Hyperlipedemia * Sig anxiety and peripheral neuropathy on buspar and gabapentin * Chronic tremor in the rt hand with previous neuro eval * Previous history of sig tobacco use Recommendation Needs bipap at night see note below DC prednisone after today Theophylline 200 at hs Resume low dose lasix po daily except friday and friday and Friday Diamox 250 po qd instead of lasix on friday and friday, and Friday COnt inhalers as she was on before Stable if patient were to get her BiPAP she can be discharged home. Patient is to follow-up with her primary feed mill manager or me immediately upon discharge. Patient is well aware that if she is noncompliant with BiPAP per Medicare criteria the [facility] we will remove the BiPAP from her own home and she accepts all risks with noncompliance. Patient has had multiple admissions and unfortunately wishes to continue current therapy Addendum BiPAP rx INDICATION: HYPOVENTILATION SYNDROME (PICKWICKIAN SYNDROME) SYMPTOMS AND SIGNS: Significant sleep associated hypoventilation with daytime hypersomnolence, excessive fatigue, morning headache and cognitive dysfunction with memory dysfunction with significant dyspnea during the day while the patient was off BiPAP REQUIRED DOCUMENTATION * Patient had a facility based sleep study. He did not show obstructive sleep apnea it showed significant bedtime hypoxemia suggestive of hypoventilation syndrome with more than 122 minutes spent with oxygen saturation of less than 88 %. This hypoxia was not caused by obstructive sleep apnea. The apnea hypoxia index was 2.1 and they were central apneas signifying moderate obesity hypoventilation syndrome with severe bedtime hypoxemia * Spirometry showed FEV1/FVC more than 70% before with FEV1 of more than 50% of predicted hence patient does not have severe COPD * Arterial blood gas while patient immediately upon awakening showed PCO2 of 64 and the patient's baseline PCO2 is 52 showing that there is more than 7 mmHg worsening signifying significant hypoxemia * Patient has had significant improvement with the use of BiPAP while she was in the hospital with the setting of 18/6 WITH 30 PERCENT FIO2 OR 3 LITRE BLEED IN, WITH BACK UP RATE OF 20) Needs BIpap 18/6 fio2 30 percent or 3 litres of oxygen bleed in Back up rate 20
[2016-07-14] MEDS ORDERED: TRAZODONE HCL50 M1 PO (11:21)
[2016-07-14 14:15] VITALS: BP 108/66
--- NOTE | 2016-07-14 16:35 | PN- Att Addend ---
Attending MD Review Statement Attending Statement Attending MD Statement: examined this patient, discuss w/resident/PA/ASSOCIATE PARTNER, agreed w/resident/PA/ASSOCIATE PARTNER, reviewed EMR data (avail), discussed w/nursing Attending Assessment/Plan: Patient seen and examined with the resident and agree with their note. Discussed with assistant director of residence life the care plan. Patient has significant obesity hypoventilation syndrome and the resulting hypercarbia. ABG done on friday morning showed PCO2 that went up to 64. Plan is to arrange for BiPAP for the patient to go home with. Explained to the patient the importance of using BiPAP at home and being compliant with it. Patient understands and is agreeable with the plan. Case management workign on arranging BIPAP for home. Acute on chronic hypercapnic respiratory failure with hypoxia and hypercapnia. Management as above.
[2016-07-14 22:40] VITALS: BP 102/60
[2016-07-15 05:42] VITALS: BP 100/60
--- NOTE | 2016-07-15 07:39 | PN- Housestaff ---
Subjective Follow-up For: Acute hypoxic/hypercarbic respiratory failure Subjective: Patient seen and examined this morning. She was sitting in bed in no acute distress, eating her breakfast. She reported being on on BiPAP for 4 hours last night. This morning she is satting well in mid 90s on 1L oxygen. Otherwise afebrile, no other complaints. Review of Systems Constitutional: Denies: chills, fever. Cardiovascular: Denies: chest pain, palpitations. Respiratory: Denies: cough, short of breath, sputum production. Gastrointestinal: Denies: abdominal pain, constipation, diarrhea, nausea, vomiting. Genitourinary: Denies: dysuria, frequency. Objective Last 24 Hrs of Vital Signs/I&O Vital Signs Date Time Temp Pulse Resp B/P Pulse O2 O2 Flow FiO2 Ox Delivery Rate 07/15 0542 98.0 63 20 100/60 96 Nasal 1.0L Cannula 07/15 0000 93 Nasal 1.0L Cannula 07/14 2307 66 98 07/14 2240 97.9 66 20 102/60 93 Nasal Cannula 07/14 1940 95 Nasal 1.0L Cannula 07/14 1415 97.4 60 20 108/66 94 Nasal 1.0L Cannula Intake & Output 07/15 1600 07/15 0800 07/15 0000 Intake Total 300 350 Output Total 200 1100 Balance 100 -750 Intake, Oral 300 350 Output, Urine 200 1100 Physical Exam General Appearance: Alert, Oriented X3, Cooperative, No Acute Distress Cardiovascular: Regular Rate, Normal S1, Normal S2 Lungs: Clear to Auscultation, Normal Air Movement Abdomen: Normal Bowel Sounds, Soft, No Tenderness Extremities: No Clubbing, No Cyanosis, bilateral lower extremity edema 1+ Assessment/Plan Assessment: 76-year-old female with a past medical history of COPD on 3.0 liters of O2 at home, ex-smoker, hypertension, hyperlipidemia, arthritis, fracture of the ankle with swollen right lower extremity, baseline bilateral edema, pulmonary hypertension with sleep apnea noncompliant with BiPAP, chronic hypercarbia related to ADITYA and central sleep apnea presented to the ED with increased lethargy and confusion. 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 Multiple readmissions for similar complaints over the past 2 years. She has been notoriously noncompliant with medications, supplemental oxygen, and CPAP at night. -Continue Albuterol/Symbicort -Watching off of antibiotics -Discontinued Prednisone 20mg. -Lasix 20 mg daily except Friday, Fri, Friday when she is to get Diamox 250 mg by mouth. -Theophylline 200mg PO QHS -Montelukast 10mg PO daily -Pulmonology following -Repeat ABG showed pCO2 of 64(ABG done imediately upon awakening, baseline pCO2 52), she will require BiPAP for use at home History of hyperlipidemia: Continue home dose of atorvastatin 80 mg by mouth daily. History of anxiety: Continue home dose of -Buspar 5mg PO BID Diet - Regular Diet DVT PPx - Heparin SC Code status - FULL CODE Problem List: 1. Acute hypercapnic respiratory failure Pain Ratin Pain Location: none Pain Goal: Remain pain free Pain Plan: Mild PP Tomorrow's Labs & Rationales: none Consulting Request: Consulting Specialty: Critical Care
[2016-07-15] MEDS ORDERED: THEOPHYLLINE A200 MG PO (10:32)
[2016-07-15] MEDS ORDERED: TRAZODONE HCL50 M1 PO (10:32)
[2016-07-15] MEDS ORDERED: FUROSEMIDE20 M1 PO (10:32)
--- NOTE | 2016-07-15 10:36 | Patient Discharge Instructions ---
Discharge Instructions General Discharge Information You were seen/treated for: Acute on chronic hypercarbic insufficiency and failure related to untreated severe obesity hypoventilation syndrome with significant bedtime hypoxia with pickwikian syndrome consistant with significant hypoventilation syndrome You had these procedures: none Special Instructions: Please use BIPAP as instructed, watch for any shortness of breathg, in emergency go to nearest hospital. please follow up with your PCP and correctional probation officer in one week, refferals provided. Diet Continue normal diet: Yes Recommended Diet: Heart Healthy Activity Activity Self Limited: Yes Acute Coronary Syndrome Inclusion Criteria At DC or during hospital stay patient has or had the following: ACS DIAGNOSIS No Discharge Core Measures Meds if any: Prescribed or Continued at Discharge Meds if any: NOT Prescribed or Continued at Discharge Congestive Heart Failure Inclusion Criteria At DC or during hospital stay patient has or had the following: CHF DIAGNOSIS No Discharge Core Measures Meds if any: Prescribed or Continued at Discharge Meds if any: NOT Prescribed or Continued at Discharge Cerebrovascular accident Inclusion Criteria At DC or during hospital stay patient has or had the following: CVA/TIA Diagnosis No Discharge Core Measures Meds if any: Prescribed or Continued at Discharge Meds if any: NOT Prescribed or Continued at Discharge Venous thromboembolism Inclusion Criteria VTE Diagnosis No VTE Type NONE VTE Confirmed by (Test) NONE Discharge Core Measures - Per Current guidelines, there needs to be overlap - treatment for the first 5 days of Warfarin therapy. - If discharged on Warfarin prior to 5 days of - overlap therapy, the patient will need to be - assessed for post discharge needs including - *Post discharge parental anticoagulation - *Warfarin and/or parental anticoagulation education - *Follow up date to check INR post discharge At least 5 days overlap therapy as Inpatient No Meds if any: Prescribed or Continued at Discharge Note: Overlap Therapy is Warfarin and Anticoagulant Meds if any: NOT Prescribed or Continued at Discharge
--- NOTE | 2016-07-15 12:52 | PN- Pulmonary ---
Subjective HPI/Critical Care Issues: Patient seen and examined this morning. She was sitting in bed in no acute distress, eating her breakfast. She reported being on on BiPAP for 4 hours last night. This morning she is satting well in mid 90s on 1L oxygen. Otherwise afebrile, no other complaints. Review of Systems Constitutional: Denies: chills, fever. Cardiovascular: Denies: chest pain, palpitations. Respiratory: Denies: cough, short of breath, sputum production. Gastrointestinal: Denies: abdominal pain, constipation, diarrhea, nausea, vomiting. Genitourinary: Denies: dysuria, frequency. Objective Current Medications: Current Medications Sig/Yamileth Start time Last Medication Dose Route Stop Time Status Admin Acetazolamide 250 MG 07/15 1000 AC 07/15 PO 1128 Albuterol Sulfate 3 ML BID 07/10 2200 AC 07/15 INH 1029 Atorvastatin Calcium 80 MG 1700 07/10 1700 AC 07/14 PO 1643 Budesonide/ 2 PUF BID 07/10 1000 AC 07/15 Formoterol Fumarate INH 1132 Buspirone HCl 5 MG BID 07/10 2200 AC 07/15 PO 1129 Furosemide 20 MG SUN TUES THUR 07/14 1500 AC PO Gabapentin 100 MG BID 07/10 1000 AC 07/15 PO 1131 Montelukast Sodium 10 MG 1700 07/10 1700 AC 07/14 PO 1644 Nystatin 1 KIRA BID 07/14 1100 AC 07/15 TOP 1131 Pantoprazole Sodium 40 MG DAILY 07/12 1000 AC 07/15 IV 1157 Senna/Docusate Sodium 2 TAB AT BEDTIME 07/10 2199 AC 07/14 PO 2207 Theophylline 200 MG QPM 07/10 2200 AC 07/14 PO 2208 Trazodone HCl 50 MG AT BEDTIME 07/14 220 AC 07/14 PO 2207 Vital Signs & I&O Last 24 Hrs of Vitals and I&O: Vital Signs Date Time Temp Pulse Resp B/P Pulse O2 O2 Flow FiO2 Ox Delivery Rate 07/15 0542 98.0 63 20 100/60 96 Nasal 1.0L Cannula 07/15 0000 93 Nasal 1.0L Cannula 07/14 2307 66 98 07/14 2240 97.9 66 20 102/60 93 Nasal Cannula 07/14 1940 95 Nasal 1.0L Cannula 07/14 1415 97.4 60 20 108/66 94 Nasal 1.0L Cannula Intake & Output 07/15 1600 07/15 0800 07/15 0000 Intake Total 300 350 Output Total 695 138 2645 Balance -200 100 -750 Intake, Oral 300 350 Output, Urine 201 539 2195 Impression/Plan Impression/Plan Impression/Plan: ABG 7.37/pco2 64/92 pao2 on 2 litres today without bipap upon awakening ABG Baseline 7.39/52pco2/122oxygen/ on 07/11/16 baseline Physical Exam General Appearance Alert, oriented x2, in mild respiratory distress on BiPAP HEENT Atraumatic, PERRLA, EOMI, dry mucous membranes Neck Supple, No JVD, +2 Carotid Pulse wo Bruit, No LAD Cardiovascular Regular Rate, Normal S1, Normal S2, No Murmurs Lungs B/l decreased breath sounds Abdomen Normal Bowel Sounds, Soft, No Tenderness Neurological Normal Speech Extremities RLE more swollen compared to LLE. B/l edema in LEs. Vascular Normal Pulses, Pulses Symmetrical IMPRESSION This is a morbidly obese lady with history of chronic lung disease who has probably mild COPD with significant restrictive pulmonary disease due to morbid obesity with no emphysema noted in the CAT scan has a following issues * REsolving Acute on chronic hypercarbic insufficiency and failure related to untreated severe obesity hypoventilation syndrome with sig bedtime hypoxia with pickwikian syndrome consistant with sig hypoventilation syndrome * REpeat nocturnal oxymetry did reveal sig bedtime hypoxia with sao2 less than 88 percent even while on oxygen for more than 10 mins * No sig copd from her previous spirometry, and pt does get bacterial bronchitis * Significant pulmonary hypertension with PA pressures more than 55 most likely related to her untreated hypventilation syndrome. VQ scan is neg and pt does not have chronic pe * Morbid obesity * Restrictive lung disease as well due to her body habitus * Chronic lower ext edema * CKD with MARY KATE better, due to HTN etc * Elevated sugar with glucose intol * Chronic microcytic anemia needs gi work up and pt not too keen now * Chronic hyponatremia * Hyperlipedemia * Sig anxiety and peripheral neuropathy on buspar and gabapentin * Chronic tremor in the rt hand with previous neuro eval * Previous history of sig tobacco use Recommendation Needs bipap at night see note below Theophylline 200 at hs Resume low dose lasix po daily except friday and friday and Friday Diamox 250 po qd instead of lasix on friday and friday, and Friday COnt inhalers as she was on before Stable if patient were to get her BiPAP she can be discharged home. Patient is to follow-up with her primary data processing systems project planner or me immediately upon discharge. Patient is well aware that if she is noncompliant with BiPAP per Medicare criteria the [employer] company we will remove the BiPAP from her own home and she accepts all risks with noncompliance. Patient has had multiple admissions and unfortunately wishes to continue current therapy OK to dc and follow up as out pt Addendum BiPAP rx INDICATION: HYPOVENTILATION SYNDROME (PICKWICKIAN SYNDROME) SYMPTOMS AND SIGNS: Significant sleep associated hypoventilation with daytime hypersomnolence, excessive fatigue, morning headache and cognitive dysfunction with memory dysfunction with significant dyspnea during the day while the patient was off BiPAP REQUIRED DOCUMENTATION * Patient had a facility based sleep study. He did not show obstructive sleep apnea it showed significant bedtime hypoxemia suggestive of hypoventilation syndrome with more than 122 minutes spent with oxygen saturation of less than 88 %. This hypoxia was not caused by obstructive sleep apnea. The apnea hypoxia index was 2.1 and they were central apneas signifying moderate obesity hypoventilation syndrome with severe bedtime hypoxemia * Spirometry showed FEV1/FVC more than 70% before with FEV1 of more than 50% of predicted hence patient does not have severe COPD * Arterial blood gas while patient immediately upon awakening showed PCO2 of 64 and the patient's baseline PCO2 is 52 showing that there is more than 7 mmHg worsening signifying significant hypoxemia * Patient has had significant improvement with the use of BiPAP while she was in the hospital with the setting of 18/6 WITH 30 PERCENT FIO2 OR 3 LITRE BLEED IN, WITH BACK UP RATE OF 20) Needs BIpap 18/6 fio2 30 percent or 3 litres of oxygen bleed in Back up rate 20
--- NOTE | 2016-07-15 15:29 | PN- Att Addend ---
Attending MD Review Statement Attending Statement Attending MD Statement: examined this patient, discuss w/resident/PA/SAILING OFFICER, agreed w/resident/PA/SAILING OFFICER, reviewed EMR data (avail), discussed w/case mgmt Attending Assessment/Plan: Patient seen and examined with the resident and agree with their note. Discussed with vet assistant the care plan. Patient has significant obesity hypoventilation syndrome and the resulting hypercarbia. ABG done on friday morning showed PCO2 that went up to 64. Plan is to arrange for BiPAP for the patient to go home with. Explained to the patient the importance of using BiPAP at home and being compliant with it. Patient understands and is agreeable with the plan. DC home today on BIPAP which was arranged.
--- NOTE | 2016-07-25 13:33 | Discharge Summary ---
Visit Information Visit Dates Admission Date: 07/09/16 Discharge Date: 07/15/16 Hospital Course Course Attending Physician: AJAY CRUZ,FRANKLYN Haddad Primary Care Physician: ELEANOR CRUZ,LISA Quintero Consulting Request: Consulting Specialty: Critical Care Hospital Course: 76-year-old female with a past medical history of COPD on 3.0 liters of O2 at home, ex-smoker, hypertension, hyperlipidemia, arthritis, fracture of the ankle with swollen right lower extremity, baseline bilateral edema, pulmonary hypertension with sleep apnea noncompliant with BiPAP, chronic hypercarbia related to ADITYA and central sleep apnea presented to the ED with increased lethargy and confusion. Vitals at the time of admission blood pressure 113/56, respiratory rate 18, pulse 81, afebrile saturating 97% on 3-1/2 L of oxygen. On physical exam she was alert and oriented 2 with the BiPAP on and in mild respiratory distress. HEENT revealed PERRLA, dry mucous membranes. Cardio exam was benign with normal S1, S2, no murmurs appreciated. Examination of the neck did not reveal any JVD or; adenopathy. Respiratory exam revealed decreased breath sounds bilaterally. Abdominal exam was benign with abdomen soft, nontender, nondistended with normal bowel sounds in all 4 quadrants. Neuro exam was limited. Examination of the extremities revealed right lower extremity slightly more swollen and warm compared to the left lower extremity. He was initially admitted to ICU for management of acute hypoxemic, hypercarbic respiratory failure. Patient with a medical history of sleep apnea noncompliant with home CPAP, COPD, obesity, and pulmonary hypertension. Multiple readmissions for similar complaints over the past 2 years. She was put back on BiPAP, initially ABG showed hypercarbia to 104, continued on Albuterol/Symbicort , was watched off of antibiotics, Lasix 20 mg and Diamox 250, Theophylline 200mg , Montelukast 10mg , Pulmonology was on board, recommended strict compliance with BiPAP as there was significant improvement in ABGs while she was on it. She was continued on atorvastatin 80 mg by mouth daily, Buspar. She was advised to follow-up with primary physician, radiographic technologist in 1 week upon discharge, and to be strictly compliant with her medication and BiPAP so as to minimize repeat exacerbation. Diet - Regular Diet DVT PPx - Heparin SC Code status - FULL CODE Allergies: Coded Allergies: morphine (CO2 GOES UP PER PT DAUGHTER 07/09/16) Disposition Summary Disposition Principal Diagnosis: Acute hypoxic/hypercarbic respiratory failure Additional Diagnosis: Hyperlipidemia Anxiety Discharge Disposition: home or self care Discharge Instructions General Discharge Information Code Status: Full Code Patient's Diet: Regular Patient's Activity: As tolerated Follow-Up Instructions/Appts: patient is advised to follow up with primary care physician, radiographic technologist in 1 week and to be very compliant with BiPAP use. Medications at Discharge Discharge Medications: Stop taking the following medications: Furosemide (Furosemide) 40 MG TABLET Trazodone HCl (Trazodone HCl) 50 MG TABLET ORAL AT BEDTIME Continue taking these medications: Rosuvastatin Calcium (Crestor) 40 MG TABLET Comments: LIPITOR 80 MG GIVEN 07/14/16 AT 5 PM Montelukast Sodium (Singulair) 10 MG TABLET Comments: Last Taken: 07/14/16 Time: 5 PM Esomeprazole (Nexium) 40 MG CAPSULE. Comments: NOT TAKEN IN HOSPITAL Albuterol Sulfate (Proair Hfa) 90 MCG HFA.AER.AD 2 Puff Inhale through mouth EVERY 4-6 HOURS NEEDED as needed for wheezing Qty = 1 Comments: Last Taken: 07/15/16 Time: 1030 AM Acetazolamide (Acetazolamide) 250 MG TABLET 1 Tablet ORAL FRIDAY, FRIDAY AND FRIDAY Comments: Last Taken: 07/15/16 Time: 11 AM Pantoprazole Sodium (Pantoprazole Sodium) 40 MG TABLET. 1 Tablet ORAL DAILY Comments: LAST TAKEN VIA IV ON 07/15/16 AT 11 AM Potassium Chloride (Potassium Chloride) 20 MEQ TAB.ER.PRT 1 Tablet ORAL DAILY Comments: NOT TAKEN IN HOSPITAL Buspirone HCl (Buspirone HCl) 5 MG TABLET 1 Tablet ORAL TWICE DAILY Comments: Last Taken: 07/15/16 Time: 11 AM Gabapentin (Gabapentin) 100 MG CAPSULE 1 Capsule ORAL TWICE DAILY Comments: Last Taken: 07/15/15 Time: 1130 AM Sennosides/Docusate Sodium (Docusate Sodium-Senna Tablet) 8.6 MG-50 MG TABLET 2 Tablet ORAL TAKE AT BEDTIME as needed for GI Comments: Last Taken: 07/14/16 Time: 10 PM Budesonide/Formoterol Fumarate (Symbicort 160-4.5 Mcg Inhaler) 160 MCG-4.5 MCG/ ACTUATION HFA.AER.AD 2 Puff Inhale through mouth TWICE DAILY Comments: Last Taken:07/15/16 Time: 11 AM Start taking the following new medications: Furosemide (Furosemide) 20 MG TABLET 1 Tablet ORAL See Instructions Days = 30 No Refills Instructions: tAKE DAILY EXCEPT FRIDAY,FRIDAY AND FRIDAY. Comments: NOT TAKEN IN HOSPITAL Theophylline Anhydrous (Theophylline Anhydrous) 200 MG TAB.ER.12H 1 Tablet ORAL Every night Days = 30 No Refills Comments: NOT TAKEN IN HOSPITAL Trazodone HCl (Trazodone HCl) 50 MG TABLET 0.5 Milligram ORAL AT BEDTIME Days = 30 No Refills Comments: NOT TAKEN IN HOSPITAL Copies To: AJAY CRUZ,FRANKLYN Haddad; SUHAIL CRUZ,ASIA Haddad; ELEANOR CRUZ,LISA Quintero Attending MD Review Statement Documenting Attending: FRANKLYN MOSS MD Other Findings: Agree with the above discharge plan. pt was seen and examined by me and discussed with patient and resident the discharge plan.
== END 2016-07-15 16:10 | disposition home health service (06) | DRG 205 ==
LOC: ERH 19:06 → ERHI 21:46 → CRI 21:46 → 2NA 07-11 22:33
PROVIDERS: Internal Medicine Infectious Disease; Internal Medicine Interventional Cardiology; Physician Assistant Surgical; ADMIT Student in an Organized Health Care Education/Training Program
PROC: 5A09457 Assistance with Respiratory Ventilation, 24-96 Consecutive Hours, Continuous Positive Airway Pressure (ICD-10-PCS; principal; 2016-07-12)
DX: E66.2 Morbid (severe) obesity with alveolar hypoventilation (principal); J96.22 Acute and chronic respiratory failure with hypercapnia; J96.21 Acute and chronic respiratory failure with hypoxia; E87.2 Acidosis; I27.2 Other secondary pulmonary hypertension; Z68.42 Body mass index [BMI] 45.0-49.9, adult; J44.0 Chronic obstructive pulmonary disease with (acute) lower respiratory infection; E87.1 Hypo-osmolality and hyponatremia; J44.1 Chronic obstructive pulmonary disease with (acute) exacerbation; Z87.891 Personal history of nicotine dependence; E78.5 Hyperlipidemia, unspecified; R32 Unspecified urinary incontinence; I12.9 Hypertensive chronic kidney disease with stage 1 through stage 4 chronic kidney disease, or unspecified chronic kidney disease; N18.3 Chronic kidney disease, stage 3 (moderate); J20.9 Acute bronchitis, unspecified; Z99.81 Dependence on supplemental oxygen; Z85.42 Personal history of malignant neoplasm of other parts of uterus
CPT/HCPCS: 2NASP; CCU; 36415; 78582; 80307; 81001; 82436; 87040; 87070; 87086; 87449; 87450; 93005; 93010; 93306; 93970; 96360; 96361; 96374; 96375; 97001-GP; 97110-GO; 97116-GO; 97530-GO; 99291; A9540; A9558; J0456; J0696; J1644; J2060; J2920; J2930; J3490; J7060